=== PATIENT | male | born 1955 | race Caucasian/White ===

== ENCOUNTER 2016-12-14 12:58 | Inpatient (IN) | payer BC ==
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
--- NOTE | ~2016-12-14 | OP ---
Record Of Operation [facility] [address] [place]. [address] NAME: LESLEE MCINTYRE : 59 STATUS : ADM IN PAT#: [id number] AGE: 61 ADM/REG DATE : 12/14/16 MR#: [id number] REPORT SERV DATE: 12/15/16 DICTATED BY: BELA YUEN DATE: 12/15/16 REPORT STATUS : Draft TRANSCRIBED BY: MODL DATE: 12/15/16 DATE OF PROCEDURE: 12/15/2016 PREPROCEDURE DIAGNOSIS: Acute kidney failure. POSTPROCEDURE DIAGNOSIS: Acute kidney failure. PROCEDURE PERFORMED: Left IJ vein Vas-Cath with ultrasound guidance. ANESTHETIC: 1% local anesthetic. ESTIMATED BLOOD LOSS: Minimal. COMPLICATIONS: None. PROCEDURE IN DETAIL: Patient was in the ICU in supine position in his hospital bed. He was on multiple pressors. Admitted last night. 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 The patient's left neck was prepped and draped in a sterile fashion. A time-out was performed. Identified the correct patient, procedure, and site. We used the ultrasound to identify the left IJ vein. It was patent, compressible, and free of thrombus. We anesthetized the skin and accessed the vein under ultrasound guidance. Once we had access, wire was passed down into the cardiac chambers. The needle was removed. We widened the entry site with 11-blade scalpel. We used percutaneous dilators to dilate up the skin and vein tract. We then advanced the 20 cm PermCath over the wire into position. The dilator and wire were then removed. The catheter flushed and aspirated with ease, and caps were placed on the catheter. The catheter was affixed to the skin using interrupted silk suture. Sterile dressing was applied to the area. The patient tolerated the procedure well. He was left in critical condition in supine position in his hospital room. MIGUEL/STAN Bela Yuen MD / [id number] CC: MD Kevin Walter Frances
--- NOTE | ~2016-12-14 | OP ---
Record Of Operation [facility] [address] [place]. [address] NAME: LESLEE MCINTYRE : 59 STATUS : ADM IN PAT#: [id number] AGE: 61 ADM/REG DATE : 12/14/16 MR#: [id number] REPORT SERV DATE: 12/15/16 DICTATED BY: RUBIO GASTELUM DATE: 12/14/16 REPORT STATUS : Draft TRANSCRIBED BY: MODL DATE: 12/14/16 DATE OF PROCEDURE: 12/14/2016 PROCEDURE: Placement of emergent right femoral central line. REASON: Patient hypotensive and in shock and requires immediate central access for vasopressin administration. PROCEDURE: The right groin was prepped and draped in sterile fashion. Lidocaine 1% was used as a local anesthetic. The right femoral vein was localized using ultrasound guidance. During the first attempt of placing the central line, the guidewire kinked and the line needed to be removed with replacement of a second line which was 20 cm triple-lumen catheter placed over a guidewire which was then removed and sewn in place with 2-0 silk. Sterile dressing and Biopatch were applied. /STAN Rubio Gastelum M.D. / [id number] CC: Conrad Paris Jr, MD
--- NOTE | ~2016-12-14 | DS ---
Discharge Summary [address] [place] [place]. [address] NAME: LESLEE MCINTYRE : 59 STATUS : DIS IN PAT#: [id number] AGE: 61 ADM/REG DATE : 12/14/16 MR#: [id number] REPORT SERV DATE: 12/30/16 DICTATED BY: MARY LOTT DATE: 12/29/16 REPORT STATUS : Draft TRANSCRIBED BY: MODL DATE: 12/29/16 ADMISSION DATE: 12/14/2016 DISCHARGE DATE: 12/29/2016 CONSULTANTS: Dr. Jim Arredondo and Dr. Joe Lerma, Cardiology. Dr. Pennie Gastelum, Dr. Aida Urban, and Dr. Wilfredo Brar, Critical Care. Dr. Faizan Yuen, Vascular. Dr. Madhav Duran, Nephrology. Dr. Sarah, Cardiothoracic Surgery. DISCHARGE PROBLEM LIST: 1. Acute hypoxic respiratory failure requiring mechanical ventilation support. 2. Shock, suspected to be sepsis versus cardiogenic, but no organisms identified. 3. Acute kidney injury, oliguric, requiring CRRT transiently. 4. Atrial fibrillation, chronic, but with rapid ventricular response. 5. Biventricular systolic heart failure. 6. Shock liver, resolving. 7. Thrombocytopenia, associated with shock, now resolved. 8. Recent dysphagia. 9. Clostridium difficile colitis. HISTORY: This patient presented to the emergency room at [facility] with complaints of shortness of breath, orthopnea, and PND. He was seen initially by Cardiology and soon thereafter also by Pulmonary/Critical Care because he was diaphoretic and hypotensive. He had the respiratory failure, was on the ventilator. He had a right femoral venous line access attempted, first passed the guidewire, kinked, line had to be removed and replaced with a second catheter and later, he had a left femoral arterial line placed, then placement of right internal jugular central line as there was report of excess bleeding at the previous femoral central line due to traumatic insertion. The patient developed oliguric acute renal failure and was seen by Dr. Duran of Nephrology. The patient was felt to need CRRT, so Dr. Yuen placed a left IJ Vas-Cath catheter. This was used for CRRT. Fortunately, the patient improved, was able to be weaned off the ventilator, was able to be weaned off pressors and regain his renal function. He received not only pressors, but broad spectrum antibiotics and stress steroids. Blood cultures had no growth. Tracheal aspirate grew out normal ricardo. Stool on the was guaiac positive, but also was positive for C diff. The patient was started on vancomycin orally. The patient has had a tremendous improvement. His creatinine is back to normal at 1.09. He is afebrile. He is ambulating. His diarrhea is resolving. His thrombocytopenia which was initially thought to possibly be heparin-induced thrombocytopenia, but those tests came back negative and was therefore most likely associated just with the shock. His thrombocytopenia has resolved. His shock liver has dramatically improved, such that his alkaline phosphatase is 127, ALT 101, AST is 36 at this time. Discharge Summary [address] [address] NAME: LESLEE MCINTYRE : 59 STATUS : DIS IN PAT#: [id number] AGE: 61 ADM/REG DATE : 12/14/16 MR#: [id number] REPORT SERV DATE: 12/30/16 DICTATED BY: MARY LOTT DATE: 12/29/16 REPORT STATUS : Draft TRANSCRIBED BY: STAN DATE: 12/29/16 His echocardiogram on 12/15/2016 showed left atrial enlargement of 5.5 cm, left ventricular ejection fraction of 25% to 30%, moderate mitral regurgitation, large left pleural effusion. Around the , the patient was noted to have not only back pain, but shock and drop in his hemoglobin. CT abdomen and pelvis revealed large retroperitoneal hematoma in the psoas muscle. The patient was seen by Interventional Radiology and had coiling into the feeding artery with control of this bleeding site. Hemoglobin stabilized. It appears he has received 4 units of packed red cells throughout this hospitalization. His hemoglobin at discharge is 11.[address] Lerma does not want to start anticoagulation at this point in time with this recent bleed. He does not want him on any antiplatelet agents either. He will see him back in the office in two weeks to reassess. Dr. Lerma did consult Dr. Sarah to consider closure of the left atrial appendage. Cardiothoracic Surgery stated that they felt that based on his low ejection fraction and previous abnormal nuclear stress, they would want him to have further evaluation with a heart catheterization first. Dr. Lerma is aware of this concern and plans to discuss that with the patient, but wants to give him the next couple of weeks to gain strength first. DISCHARGE MEDICATIONS: Amiodarone 200 mg twice a day, metoprolol 12.5 mg b.i.d., vancomycin 125 mg liquid four times a day through 01/05/2017 to complete 14 days, Tylenol 650 q.6 hours p.r.n. pain or fever, multivitamin once a day. I spent 43 minutes with the patient today and with discharge plan. DICTATED BY: Baltazar Mendieta/STAN Mary Lott M.D. / [id number] CC: Baltazar Mendieta FRANCES Gordon Graham, M.D. James Zellner, M.D.
--- NOTE | ~2016-12-14 | IDS ---
Interim Discharge Summary [facility] [address] [place]. [address] NAME: LESLEE MCINTYRE : 59 STATUS : ADM IN [facility]#: [id number] AGE: 61 ADM/REG DATE : 12/14/16 MR#: [id number] REPORT SERV DATE: 12/23/16 DICTATED BY: YOSSI BRAR DATE: 12/23/16 REPORT STATUS : Draft TRANSCRIBED BY: MODL DATE: 12/23/16 ADMISSION DATE: 12/14/2016 DISCHARGE DATE: DATE OF TRANSFER TO THE ICU: 12/15/2016. DATE OF INTERIM SUMMARY: 12/23/2016. INTERIM DIAGNOSES: 1. Acute hypoxic respiratory failure. 2. Septic and cardiogenic shock. 3. Acute renal failure. 4. Thrombocytopenia. 5. Atrial fibrillation with a rapid ventricular response. 6. Shock liver. 7. Clostridium difficile colitis. 8. Acute systolic heart failure. 9. Dysphagia. ICU COURSE: Please see dictated H and P as well as last interim discharge summary dictated by Dr. Urban on 12/18/2016 for full patient presentation history and hospital course up until that point. I took over care of the patient on 12/19/2016, this interim summary covers the events of this week. When I took over the patient, he was still intubated on the ventilator with acute hypoxic respiratory failure and was still requiring continuous renal replacement therapy as well as being in shock. 1. Acute hypoxic respiratory failure. The patient was able to be weaned and liberated from the ventilator on 12/19/2016, since extubation he has done well from a Pulmonary standpoint. We will continue with pulmonary toilet and getting Physical Therapy to see him. 2. Shock. The patient was still on some low dose dobutamine when I took over at the beginning of the week due to his acute systolic heart failure. This was able to be weaned off within 24 hours as his urine output continued to improve. He has been off vasopressors the majority of the week. He briefly had to go on Levophed a couple nights ago, but I think that was more secondary to volume depletion than anything. He empirically was on antibiotics at that time for presumed septic shock. There are no clear etiology was ever identified. After a full course of antibiotics I discontinued those and he has done well off those for now. He did have some gallbladder thickening with potential sludge or stones seen on CT scan on admission. I did get General Surgery to evaluate him and they see no surgical indication at this time. 3. Acute renal failure. This has been managed by Renal. HEAD WAITER was discontinued several days ago and he has not require dialysis since that time. He is making very good urine output and will likely have his Vas-Cath discontinued very soon. 4. Thrombocytopenia. This is likely secondary to sepsis. He did have a HIT panel sent and was on a gastric band briefly at the beginning of the week though that was negative and he was then switched back over to a heparin drip. Platelets have slowly been increasing over the last couple of days, and he has had no evidence of bleeding. Interim Discharge Summary [place] [id number] [facility] [place]. [address] NAME: LESLEE MCINTYRE : 59 STATUS : ADM IN [facility]#: [id number] AGE: 61 ADM/REG DATE : 12/14/16 MR#: [id number] REPORT SERV DATE: 12/23/16 DICTATED BY: YOSSI BRAR DATE: 12/23/16 REPORT STATUS : Draft TRANSCRIBED BY: STAN DATE: 12/23/16 5. Atrial fibrillation as well as acute systolic heart failure. These things have been managed by Cardiology. He has been transitioned over to p.o. amiodarone as well as a p.o. beta bernard with good control of his heart rate. He is now on just p.o. Coumadin for anticoagulation. We will continue to defer management of these 2 issues to Cardiology. 6. Shock liver, this has resolved. 7. Clostridium difficile colitis. Several days ago the patient was having large volume bowel movements and had a Clostridium difficile toxin that was positive. He is now on p.o. vancomycin. 8. Dysphagia. Apparently the patient came in with complaints of difficulty swallowing. Speech evaluated him here in the unit after extubation and he was cleared for mechanical soft diet. He has done well with this with no evidence of aspiration. 9. The patient is stable and should be able to go out to a telemetry bed when one is available. Please call if you have any questions. The hospitalist service will resume his care once he goes out to the floor. BRIAN/STAN Yossi Brar MD / [id number] CC: Conrad Paris Jr, MD Frances H. Barnett, MD
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
--- NOTE | ~2016-12-14 | OP ---
Record Of Operation [facility] [address] [place]. [address] NAME: LESLEE MCINTYRE : 59 STATUS : ADM IN [facility]#: [id number] AGE: 61 ADM/REG DATE : 12/14/16 MR#: [id number] REPORT SERV DATE: 12/15/16 DICTATED BY: RUBIO GASTELUM DATE: 12/15/16 REPORT STATUS : Draft TRANSCRIBED BY: MODL DATE: 12/15/16 DATE OF PROCEDURE: 12/15/2016 PROCEDURE: Placement of right internal jugular central line. REASON: Excess bleeding at previous femoral central line site, traumatic insertion. This is an urgent situation since the patient is on pressors and needs central line access. DESCRIPTION OF PROCEDURE: The right neck was prepped and draped in sterile fashion. Lidocaine 1% was used as a local anesthetic. The right internal jugular vein was easily located using ultrasound guidance. Large bore needle was inserted directly into the right internal jugular using ultrasound guidance with good blood return. Guidewire was passed through the large bore needle, which was then removed. The site was dilated and 20 cm triple-lumen catheter was inserted over the guidewire, which was subsequently removed. Good blood return was obtained from all three ports. Sterile Biopatch was applied. Line was sewn in place with 2-0 silk and sterile dressing was applied. Chest x-ray confirmed good placement of the line without any pneumothorax. /STAN Rubio Gastelum M.D. / [id number] CC: Conrad Paris Jr, MD
--- NOTE | ~2016-12-14 | CN ---
Consultation Report [facility] [address] [place]. [address] NAME: HERNAN MCINTYRE : 59 STATUS : ADM IN PAT#: [id number] AGE: 61 ADM/REG DATE : 12/14/16 MR#: [id number] REPORT SERV DATE: 12/14/16 DICTATED BY: JIM ARREDONDO DATE: 12/14/16 REPORT STATUS : Draft TRANSCRIBED BY: MODL DATE: 12/14/16 CARDIOLOGY CONSULTATION. DATE OF CONSULTATION: 12/14/2016 OUTPATIENT WOODS RIDER: Dr. Joe Lerma. PURPOSE: Atrial fibrillation, RVR. HISTORY OF PRESENT ILLNESS: Mr. Hernan Mcintyre is a very pleasant 61-year-old man who is seen in the hospital room. There was a friend present. The patient has a history of chronic atrial fibrillation, but for an unclear reason, the patient stopped both his Eliquis and Coreg several months ago. When asked why, he simply says "he did." The patient presents to the hospital today with a slightly convoluted story, but apparently at some point, he was trying to swallow food, he was choking, and the food stuck in his throat. Apparently, this has happened several times is what the patient's friend says. He then came to the hospital with complaints of some shortness of breath. He was found to have a BNP of 1100. A chest x ray showed some mild volume overload and vertebral compression deformities, and he was found to have atrial fibrillation with RVR. He was admitted to the Hospitalist Service for further evaluation and management, and Cardiology is consulted. The patient reports he is fairly comfortable at the present time. He reports no obvious weight gain. If anything, thinks his weight could have gone down at some point. He does not follow his medical issues closely. No clear orthopnea, no angina. There possibly was a lightheaded spell today when the patient was coughing and gagging when the food stuck in his throat. PAST MEDICAL HISTORY: 1. Chronic atrial fibrillation, on a rate control, anticoagulation approach; however, the patient self discontinued both the rate control and anticoagulation approach several months ago as described above. 2. History of moderate to severe mitral regurgitation on previous echo. 3. History of a cardiomyopathy with an ejection fraction between 41% and 48%. 4. Previous perfusion imaging demonstrated mild inferior septal and inferior apical ischemia. This was 2014. HOME MEDICATIONS: Multivitamin. On review of office records, the patient was noted to be taking carvedilol 25 twice daily and Eliquis 5 twice daily. ALLERGIES: NONE KNOWN. SOCIAL HISTORY: Apparently a never smoker. FAMILY HISTORY: Reviewed and noncontributory. REVIEW OF SYSTEMS: Consultation Report [facility] [address] [place]. [address] NAME: HERNAN MCINTYRE : 59 STATUS : ADM IN PAT#: [id number] AGE: 61 ADM/REG DATE : 12/14/16 MR#: [id number] REPORT SERV DATE: 12/14/16 DICTATED BY: JIM ARREDONDO DATE: 12/14/16 REPORT STATUS : Draft TRANSCRIBED BY: STAN DATE: 12/14/16 As per the HPI. Otherwise, all other review of systems negative. PHYSICAL EXAMINATION: VITAL SIGNS: Blood pressure of 107/80, heart rate 103, respiratory rate 18, oxygen saturation 99% on room air. GENERAL: Appears stated age, no distress. EYES: Sclerae anicteric, no arcus senilis. MOUTH: Oral mucosa moist, lips acyanotic. NECK: Jugular venous pressure normal, no carotid bruits. LUNGS: Mildly diminished breath sounds. CARDIAC: Irregular rhythm, tachycardic, a 2/6 systolic murmur towards the apex. ABDOMEN: Soft, nondistended, nontender. EXTREMITIES: No edema. SKIN: Warm and dry. NEURO/PSYCH: Alert and oriented, nonfocal, mood appropriate. DATA: Creatinine 1.2. BNP 1120. Hemoglobin 12.9. Potassium 4.1. Chest x-ray is as described. ECG is atrial fibrillation with a right bundle-branch block conduction pattern and nonspecific ST-T changes. IMPRESSIONS: 1. Chronic atrial fibrillation, now with RVR secondary to medical noncompliance. 2. Dysphagia. 3. Possible volume overload secondary to atrial fibrillation with RVR. RECOMMENDATIONS: 1. Lasix. 2. Resume Coreg and up titrate as needed. 3. Plan to resume Eliquis, but we will hold for now pending possible GI evaluation for patient's dysphagia. 4. Echocardiogram is ordered and pending. We will follow. ESTUARDO/STAN Jim Arredondo M.D. / [id number] CC: Conrad Paris Jr, MD
--- NOTE | ~2016-12-14 | IDS ---
Interim Discharge Summary [facility] [address] [place]. [address] NAME: LESLEE MCINTYRE : 59 STATUS : ADM IN [facility]#: [id number] AGE: 61 ADM/REG DATE : 12/14/16 MR#: [id number] REPORT SERV DATE: 12/18/16 DICTATED BY: SYLWIA VALDEZ DATE: 12/18/16 REPORT STATUS : Draft TRANSCRIBED BY: MODL DATE: 12/18/16 ADMISSION DATE: 12/14/2016 DISCHARGE DATE: BRIEF HISTORY OF PRESENT ILLNESS: Mr. Mcintyre is a 61-year-old gentleman, who was admitted through the emergency room in shock with a perception of likely septic source with associated acute kidney injury, who was admitted to the intensive care unit after briefly being admitted to the Hospital Medicine Service under Dr. Paris. He has chronic atrial fibrillation and is followed at [facility] by Dr. Nicolas. His primary issue over the last couple of weeks is dysphagia with difficulty swallowing. He was actually scheduled to get an EGD on 12/19/2016 at [facility], but unfortunately became acutely ill and presented to our emergency room on the night of his admission. The concern initially was for aortic dissection based on the fact that his face was very blue and he underwent CTA, which was thankfully negative. Ultimately, he was moved to CCU and started on mechanical ventilation for respiratory support. A line was placed by Dr. Gastelum and he was started on broad- spectrum antibiotics with presumptive diagnosis of septic shock in the absence of any vascular pathology evident on the CT scan. Please see Dr. Gastelum's detailed documentation from his initial presentation for further details of his admission. HOSPITAL COURSE: After being moved to the CCU on 12/14/2016, I picked him up the following morning. Of note, he was oliguric and on multiple pressors. Decision was made to proceed with continuous dialysis for clearance of toxins and correction of acidosis. Dr. Duran and Dr. Yuen consulted to assist and he was started on the early in the afternoon on that day. His antibiotics were broadened to include meropenem in light of concern for ESBL organisms and he remained hypotensive on pressors for the next few days. He was also placed on stress dose steroids. He underwent an echo, which showed biventricular failure and pulmonary hypertension. Of note, his cultures have been fairly unremarkable and his procalcitonin and white count have resolved, but he does have some persistent hypotension, requiring intermittent dosing of Levophed. Concern has been raised for untreated/undrained source of sepsis and he underwent an MRI of his back in light of his complaints of intractable back pain on admission to exclude discitis or epidural abscess as he does have some wounds on his abdomen about which we have fairly minimal history, raising concern for transient bacteremia and seeding. The MRI was negative and we have now turned our attention to his heart as a potential source for persistent shock. He was seen by Cardiology, who initially started on heparin drip, however, he did develop thrombocytopenia and has been changed to argatroban due to concern for (HIT versus thrombocytopenia secondary to critical illness). ACUTE PROBLEM LIST: 1. Acute hypoxemic respiratory failure, on mechanical ventilation, 12/14 until today. Of note, he is still fairly volume overloaded and has right greater than left pleural effusions. We will consider thoracentesis in the next couple of days if the effusions do not respond to increased ultrafiltration on MOLD TOOLING TECHNICIAN, now that he is off vasopressors. Plan, spontaneous breathing trial daily, off sedation until successfully extubated. 2. Septic shock versus cardiogenic shock. His cultures have been unremarkable and we have now stop vancomycin. He continues on meropenem monotherapy and is now off Interim Discharge Summary [address] [address] NAME: LESLEE MCINTYRE : 59 STATUS : ADM IN [facility]#: [id number] AGE: 61 ADM/REG DATE : 12/14/16 MR#: [id number] REPORT SERV DATE: 12/18/16 DICTATED BY: SYLWIA VALDEZ DATE: 12/18/16 REPORT STATUS : Draft TRANSCRIBED BY: MODL DATE: 12/18/16 vasopressors. His procalcitonin level is fairly unremarkable and his white blood cell count has been around 7 for the last three days. We are concerned that his shock state may be secondary to his biventricular failure and he has been started on a trial of dobutamine by Dr. Michaud who is following him this weekend for [facility]. We will make further assessments. Pending his clinical response to trial of dobutamine. Of note, we also did discontinue propofol due to its negative inotropic properties, and we are now sedating him with only fentanyl and Precedex. 3. Acute kidney injury (oliguric), requiring CRRT secondary to the above. He continues to be on the which has been managed by Dr. Duran over the weekend. We certainly appreciate his assistance now that he is off vasopressors as of 5:30 this morning. The goal would be to begin to pull volume later today with ongoing clearance of toxins. 4. Atrial fibrillation with RVR. He is chronically in atrial fibrillation. He is actually on anticoagulation as well as some sort of antiarrhythmic, which were being prescribed by the Cardiology Clinic at [facility]. He did have episodes of RVR during his hospitalization due to his critical illness and is now better rate controlled with amiodarone. 5. Metabolic acidosis secondary to elevated lactate, now improved with CRRT and treatment of shock state. 6. Biventricular failure/pulmonary hypertension. He is certainly volume overloaded. We put him on a trial of dobutamine and stopped all potential negative inotropes and we will follow his clinical response to dobutamine in the next couple of days. 7. Shock liver. His LFTs did peak in the now trending down. 8. Thrombocytopenia. Again, likely secondary to his shock state but HIT panel has been sent to be complete. Heparin drip is off and he has been started on argatroban. 9. Recent history of dysphagia in the setting of recent weight loss. He would certainly benefit from GI evaluation and EGD in the future to exclude malignancy, however, this has been low in the priority list due to his more acute issues. 10.Prophylaxis. He is on argatroban at this point as well as a proton pump inhibitor. He is on tube feeds, which he is tolerating and is a full code. We have updated his family multiple times over the weekend and we will continue to do so. He will be picked up on Monday by the oncoming special technical operations officer. ZAHEER/STAN Sylwia Valdez MD / [id number] CC: Conrad Paris Jr, MD BARNETT, FRANCES
--- NOTE | ~2016-12-14 | OP ---
Record Of Operation [facility] [address] [place] [address] NAME: LESLEE MCINTYRE : 59 STATUS : ADM IN [facility]#: [id number] AGE: 61 ADM/REG DATE : 12/14/16 MR#: [id number] REPORT SERV DATE: 12/15/16 DICTATED BY: RUBIO GASTELUM DATE: 12/14/16 REPORT STATUS : Draft TRANSCRIBED BY: MODL DATE: 12/14/16 DATE OF PROCEDURE: 12/14/2016 PROCEDURE: Intubation. REASON: Respiratory failure, metabolic acidosis. DESCRIPTION OF PROCEDURE: The patient was pre-oxygenated with 100% oxygen and sedated with 20 mg of IV etomidate. A 3 mL of IV Diprivan and 65 mg of IV succinylcholine. He was monitored throughout the procedure and maintained at O2 saturation greater than 90%. A curved blade was used and vocal cords were well visualized and an #8 endotracheal tube was placed on the first attempt. Bilateral breath sounds were heard and CO2 sensor changed appropriate color from blue to yellow. Chest x-ray confirmed good placement of the endotracheal tube. /STAN Rubio Gastelum M.D. / [id number] CC: Conrad Paris Jr, MD
--- NOTE | ~2016-12-14 | CN ---
Consultation Report [facility] [address] [place]. [address] NAME: LESLEE MCINTYRE : 59 STATUS : ADM IN PAT#: [id number] AGE: 61 ADM/REG DATE : 12/14/16 MR#: [id number] REPORT SERV DATE: 12/15/16 DICTATED BY: RUBIO GASTELUM DATE: 12/14/16 REPORT STATUS : Draft TRANSCRIBED BY: MODL DATE: 12/14/16 CONSULTATION DATE OF CONSULTATION: 12/14/2016 HISTORY OF PRESENT ILLNESS: This is a 61-year-old patient I was asked to see by Dr. Purdy, hospitalist, after rapid response was called on the patient on the floor. The patient was admitted earlier in the day with a chief complaint of increasing shortness of breath. He apparently was trying to swallow food and choked and felt that the food got stuck in his throat. This apparently happened several times, and this is what brought him into the hospital. When he was evaluated in the emergency room, he was found to be in rapid atrial fibrillation. He has a known history of AFib, but stopped taking his medication including his Eliquis on his own a few months ago, the reason for this is not really apparent. He has been seen by Dr. Joe Lerma on an outpatient basis mostly because of his cardiomyopathy and has an ejection fraction of 41% to 48% and wonoflem-wr-tbltxg mitral regurgitation. Later in the evening, shortly after the patient had dinner, he started complaining of excruciating back pain, became diaphoretic, hypotensive, and a rapid response was called. The patient was evaluated on the floor and had a blood pressure of 60. He was then transferred to the CCU for further care and upon arrival here, was in excruciating pain, complaining mostly of back pain. No chest pain. Denied any abdominal pain. Did not have any nausea or vomiting associated with this. The patient was given some morphine and a milligram of Ativan. Central line was placed and eventually, the patient was intubated for respiratory distress and is currently undergoing further evaluation to determine the etiology of his pain and presentation. ALLERGIES: THE PATIENT HAS NO KNOWN DRUG ALLERGIES. MEDICATIONS: Currently, he is not on any medications at home. PAST MEDICAL HISTORY: 1. Significant for chronic atrial fibrillation. 2. Utdflyij-pp-wockve mitral regurgitation. 3. History of cardiomyopathy with ejection fraction of 41% to 48%. 4. Dysphagia. 5. History of inguinal hernia repair done by Dr. Barger in 2015. SOCIAL AND FAMILY HISTORY: All that is known is the patient is not a smoker and does not drink alcohol; however, there is no family available at this time to obtain any further medical history from. Family history cannot be obtained for the same reason. REVIEW OF SYSTEMS: The patient currently intubated and was not in any condition to give a review of systems. PHYSICAL EXAMINATION: Consultation Report [address] [place]. [address] NAME: LESLEE MCINTYRE : 59 STATUS : ADM IN [facility]#: [id number] AGE: 61 ADM/REG DATE : 12/14/16 MR#: [id number] REPORT SERV DATE: 12/15/16 DICTATED BY: RUBIO GASTELUM DATE: 12/14/16 REPORT STATUS : Draft TRANSCRIBED BY: STAN DATE: 12/14/16 GENERAL: Upon arrival to the Critical Care Unit, the patient was in excruciating pain, was not able to lie still in bed. VITAL SIGNS: Blood pressure varied systolic from 60 to 75. The patient was hypothermic to 93 degrees, heart rate was in the 40s and 50s, sinus bradycardic, respiratory rate was in the high 20s. SKIN: Cool to touch. HEENT: The head is atraumatic and normocephalic. Pupils are equal, round, and reactive to light and accommodation. Extraocular eye movements are intact. Sclerae anicteric. Conjunctivae are pink. Nasal mucosa is within normal limits. Oral mucosa is somewhat dry. Tongue was midline. NECK: Supple. No JVD or thyromegaly was noted. CHEST: Showed no wheezing, decreased breath sounds at the bases. CARDIAC: Revealed an irregularly irregular rhythm. No significant murmurs were heard. ABDOMEN: Nondistended and flat, and was not particularly firm to touch. Bowel sounds were absent. There were known what appeared to be old possible surgical scars on the skin; however, the patient states that he has not had recent surgery. : He has normal male external genitalia. Heredia has been placed with very little urine output. EXTREMITIES: There is otherwise no skin breakdown. Pulses are diminished, but palpable after initiation of Levophed. There is no cyanosis, clubbing, or edema. NEUROLOGIC: Grossly intact. LABORATORY DATA: Most current lab work shows the procalcitonin pending. Sodium is 140, potassium 5.3, chloride 100, bicarbonate 24, BUN 19, creatinine 1.93, glucose 296, magnesium 1.9, phosphorus 5.3, albumin 2.6. Amylase, lipase, and LFTs are normal. Troponin 0.03. Lactic acid level 11, cortisol level is 41, ammonia level is within normal limits. White cell count is 4.9, hemoglobin 12, hematocrit 35, platelet count 143,000. INR is 1.5. Remainder of lab work is pending. EKG shows a junctional rhythm, heart rate of 42, and right bundle-branch block. Chest x-ray shows good placement of the endotracheal tube, enlarged cardiac silhouette. KUB shows good placement of the NG tube. ASSESSMENT AND PLAN: This is a 61-year-old patient, who presents with increasing shortness of breath, known history of atrial fibrillation with rapid ventricular response, cardiomyopathy, mitral regurgitation, and difficulty with dysphagia, who now developed sudden onset of excruciating back pain, shortness of breath, hypotension, and what appears to be shock. Possibilities include dissection, pulmonary embolus, perforated esophagus. The plan will be to stabilize the patient and obtain a CT of the chest, abdomen, and pelvis. Contrast will be included to get the best possible result since the patient is in a life- threatening situation. His creatinine is now elevated from normal to 1.93. IV fluids will be given and creatinine will be closely watched, but I suspect the patient will develop JANY just on the basis of being extremely hypotensive. The patient is in critical condition and is at risk for circulatory, renal, and cardiac decompensation. Since he is intubated, he will require frequent ventilator manipulation, volume resuscitation, vasoactive manipulation, and neurologic monitoring. Consultation Report [address] [place]. [address] NAME: LESLEE MCINTYRE : 59 STATUS : ADM IN [facility]#: [id number] AGE: 61 ADM/REG DATE : 12/14/16 MR#: [id number] REPORT SERV DATE: 12/15/16 DICTATED BY: RUBIO GASTELUM DATE: 12/14/16 REPORT STATUS : Draft TRANSCRIBED BY: STAN DATE: 12/14/16 Total time spent with the patient was 120 minutes, which began at 9:30 p.m. and ended at 11:30 p.m. for 120 minutes, less 30 minutes for intubation and line placement, leaving critical care time at 90 minutes. AUGUST/STAN Rubio Gastelum M.D. / [id number] CC: Conrad Paris Jr, MD
--- NOTE | ~2016-12-14 | OP ---
Record Of Operation [facility] [address] [place]. [address] NAME: LESLEE MCINTYRE : 59 STATUS : ADM IN PAT#: [id number] AGE: 61 ADM/REG DATE : 12/14/16 MR#: [id number] REPORT SERV DATE: 12/15/16 DICTATED BY: RUBIO PEREZ DATE: 12/15/16 REPORT STATUS : Draft TRANSCRIBED BY: MODL DATE: 12/15/16 DATE OF PROCEDURE: 12/15/2016 PROCEDURE: Placement of left femoral arterial line. REASON: The patient is hypotensive, etiology unknown, and is on 2 pressors, and needs invasive monitoring. PROCEDURE: The left groin was prepped and draped in sterile fashion. Lidocaine 1% was used as local anesthetic. The femoral artery was easily located using ultrasound guidance. Large bore needle was inserted into the right femoral artery with good blood return. Guidewire was threaded through the large bore needle, which was then removed. A 12 cm catheter was then inserted over the guidewire with removal of the guidewire. Sterile Biopatch was applied. The line was sewn in place with 2-0 silk. Good waveform was transduced. Sterile dressing was applied. /STAN Rubio Perez M.D. / [id number]
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
[2016-12-14 12:41] LABS: BASOPHILS 0.5 %; BASOPHILS ABSOLUTE 0.03 10/3/uL (0.0-0.16); EOSINOPHILS 2.1 %; EOSINOPHILS ABSOLUTE 0.12 10/3/uL (0.0-0.53); HEMATOCRIT 37.7 % (40.0-51.0); HEMOGLOBIN 12.9 g/dL (13.6-17.8); IMMATURE GRANULOCYTES 0.3 %; IMMATURE GRANULOCYTES ABSOLUTE 0.02 10/3/uL (0.0-0.11); LYMPHOCYTES ABSOLUTE 1.21 10/3/uL (0.67-4.30); MANUAL DIFF NO %; MEAN CORPUS HGB CONC 34.2 g/dL (32.0-36.0); MEAN CORPUSCULAR HEMOGLOB 28.6 pg (26.0-34.0); MEAN CORPUSCULAR VOLUME 83.6 fL (80-100); MEAN PLATELET VOLUME 11.1 fL (9.2-13.0); MONOCYTES 8.5 %; MONOCYTES ABSOLUTE 0.49 10/3/uL (0.21-1.20); NEUTROPHILS 67.6 %; NEUTROPHILS ABSOLUTE 3.89 10/3/uL (2.02-8.40); PLATELET COUNT 137 10/3/uL (150-400); RBC DISTRIBUTION WIDTH 17.1 % (12.0-16.0); RED CELL COUNT 4.51 10/6/uL (4.7-6.1); WHITE BLOOD CELLS 5.8 10/3/uL (4.5-10.5)
[2016-12-14 12:48] LABS: INTERNATIONAL NORMAL RATI 1.2 UNITS (-); PARTIAL THROMBO TIME 28.3 SEC (22.5-37.2); PROTIME (NOT ORD) 14.8 SEC (12.0-14.5)
[~2016-12-14 12:58] MED LIST: COREG12 PO; ELIQUIS 5 MG TAB5 MG PO; GOODY'S HEADAC1 EACH PO; UNKNOWN MED
[2016-12-14 13:01] LABS: BUN (BLOOD UREA NITROGEN) 17 MG/DL (6-23); CALCIUM, SERUM 8.5 MG/DL (8.5-10.4); CHEST PAIN PROFILE TAT 0 Hrs 24 Mins; CHLORIDE, SERUM 107 MMOL/L (96-112); CO2 (CARBON DIOXIDE) 21 MMOL/L (24-34); CREATININE 1.24 MG/DL (0.70-1.30); GFR AFRICAN AMERICAN 73 ML/MIN (>=60); GFR NON AFRICAN AMERICAN 63 ML/MIN (>=60); GLUCOSE, SERUM 101 MG/DL (60-99); POTASSIUM, SERUM 4.1 MMOL/L (3.5-5.3); SODIUM, SERUM 137 MMOL/L (135-148); TROPONIN I 0.04 NG/ML (<0.05)
[2016-12-14 13:32] LABS: ALLENS TEST Pos; BE (BASE EXCESS) -6.2 MEQ/L (0 +/- 2.5); CARBOXYHEMOGLOBIN 1.2 % (0-3); HCO3 (ACTUAL BICARBONATE) 16.1 MEQ/L (23-27); HEMOBLOGIN CONTENT 13.2 G/DL (14-18); INSTRUMENT SERIAL # 8087; METHEMOGLOBIN 0.2 % (0-3); O2 CONTENT 17.8 VOL% (18-24); PCO2 (CO2 TENSION) 24 MMHG (35-45); PO2 (O2 TENSION) 93 MMHG (79-93); SAMPLE Arterial; pH 7.44 (7.37-7.43)
[2016-12-14] MEDS ORDERED: CENTRUM PO (14:29)
[2016-12-14] MEDS ORDERED: *DENIES (14:34)
[2016-12-14 19:04] LABS: ULTRASENSITIVE TSH 2.42 MCIU/ML (0.358-3.740)
[2016-12-14 21:41] LABS: ALBUMIN 3.6 G/DL (3.5-5.0)
[2016-12-14 22:34] LABS: BASOPHILS 0.2 %; BASOPHILS ABSOLUTE 0.01 10/3/uL (0.0-0.16); EOSINOPHILS 0.2 %; EOSINOPHILS ABSOLUTE 0.01 10/3/uL (0.0-0.53); HEMATOCRIT 35.6 % (40.0-51.0); HEMOGLOBIN 12.1 g/dL (13.6-17.8); IMMATURE GRANULOCYTES 0.4 %; IMMATURE GRANULOCYTES ABSOLUTE 0.02 10/3/uL (0.0-0.11); LYMPHOCYTES 17.7 %; LYMPHOCYTES ABSOLUTE 0.87 10/3/uL (0.67-4.30); MEAN CORPUSCULAR HEMOGLOB 28.5 pg (26.0-34.0); MEAN PLATELET VOLUME 11.7 fL (9.2-13.0); MONOCYTES 4.5 %; MONOCYTES ABSOLUTE 0.22 10/3/uL (0.21-1.20); NEUTROPHILS ABSOLUTE 3.78 10/3/uL (2.02-8.40); PLATELET COUNT 143 10/3/uL (150-400); RBC DISTRIBUTION WIDTH 17.4 % (12.0-16.0); RED CELL COUNT 4.24 10/6/uL (4.7-6.1); WHITE BLOOD CELLS 4.9 10/3/uL (4.5-10.5)
[2016-12-14 22:45] LABS: MANUAL DIFF NO %
[2016-12-14 22:48] LABS: INTERNATIONAL NORMAL RATI 1.5 UNITS (-); PARTIAL THROMBO TIME 28.6 SEC (22.5-37.2)
[2016-12-14 22:50] LABS: PROTIME (NOT ORD) 17.5 SEC (12.0-14.5)
[2016-12-14 22:54] LABS: ALKALINE PHOSPHATASE 99 U/L (45-117); BUN (BLOOD UREA NITROGEN) 19 MG/DL (6-23); CHLORIDE, SERUM 100 MMOL/L (96-112); CO2 (CARBON DIOXIDE) 24 MMOL/L (24-34); DIRECT BILIRUBIN 0.2 MG/DL (0.0-0.4); GLOBULIN 2.6 G/DL (2.5-4.1); INDIRECT BILIRUBIN(NOT ORDER) 0.8 MG/DL (0.1-0.9); PHOSPHORUS, SERUM 5.3 MG/DL (2.5-4.5); SGOT(AST) 30 U/L (5-40); SGPT(ALT) 37 U/L (5-65); SODIUM, SERUM 140 MMOL/L (135-148); TOTAL PROTEIN 5.2 G/DL (6.0-8.5)
[2016-12-14 22:55] LABS: ALBUMIN 2.6 G/DL (3.5-5.0); CALCIUM, SERUM 7.3 MG/DL (8.5-10.4); CREATININE 1.93 MG/DL (0.70-1.30); GFR AFRICAN AMERICAN 43 ML/MIN (>=60); GFR NON AFRICAN AMERICAN 37 ML/MIN (>=60); GLUCOSE, SERUM 296 MG/DL (60-99); POTASSIUM, SERUM 5.3 MMOL/L (3.5-5.3)
[2016-12-14 23:11] LABS: CPK 61 U/L (0-200); TROPONIN I 0.03 NG/ML (<0.05)
[2016-12-14 23:13] LABS: CK-MB 3.2 NG/ML
[2016-12-14 23:47] LABS: PROCALCITONIN 0.05 ng/mL (<0.5)
[2016-12-15 04:06] LABS: INSTRUMENT SERIAL # 35151
[2016-12-15 04:07] LABS: BE (BASE EXCESS) -12.8 MEQ/L (0 +/- 2.5); HCO3 (ACTUAL BICARBONATE) 11.2 MEQ/L (23-27); HEMOBLOGIN CONTENT 14.8 G/DL (14-18); METHEMOGLOBIN 0.7 % (0-3); MODE CMV; O2 CONTENT 19.5 VOL% (18-24); OPERATOR ID 23712; PCO2 (CO2 TENSION) 23 MMHG (35-45); PO2 (O2 TENSION) 83 MMHG (79-93); SAMPLE Arterial; TIDAL VOLUME 500 ML; pH 7.31 (7.37-7.43)
[2016-12-15 04:50] LABS: A/G RATIO 1.1 (0.7-1.9); ALBUMIN 3.1 G/DL (3.5-5.0); ALKALINE PHOSPHATASE 111 U/L (45-117); BUN (BLOOD UREA NITROGEN) 24 MG/DL (6-23); CALCIUM, SERUM 6.7 MG/DL (8.5-10.4); CHLORIDE, SERUM 104 MMOL/L (96-112); CO2 (CARBON DIOXIDE) 11 MMOL/L (24-34); CREATININE 2.17 MG/DL (0.70-1.30); GFR AFRICAN AMERICAN 37 ML/MIN (>=60); GFR NON AFRICAN AMERICAN 32 ML/MIN (>=60); GLOBULIN 2.8 G/DL (2.5-4.1); GLUCOSE, SERUM 258 MG/DL (60-99); INDIRECT BILIRUBIN(NOT ORDER) 1.3 MG/DL (0.1-0.9); PHOSPHORUS, SERUM 5.2 MG/DL (2.5-4.5); POTASSIUM, SERUM 5.5 MMOL/L (3.5-5.3); SGOT(AST) 107 U/L (5-40); SGPT(ALT) 54 U/L (5-65); SODIUM, SERUM 138 MMOL/L (135-148); TOTAL BILIRUBIN 2.3 MG/DL (0-1.2); TOTAL PROTEIN 5.9 G/DL (6.0-8.5)
[2016-12-15 05:41] LABS: HEMATOCRIT 41.8 % (40.0-51.0); MANUAL DIFF YES %; MEAN CORPUS HGB CONC 33.5 g/dL (32.0-36.0); MEAN CORPUSCULAR HEMOGLOB 28.7 pg (26.0-34.0); MEAN CORPUSCULAR VOLUME 85.8 fL (80-100); MEAN PLATELET VOLUME 12.3 fL (9.2-13.0); PLATELET COUNT 150 10/3/uL (150-400); RBC DISTRIBUTION WIDTH 17.7 % (12.0-16.0); RED CELL COUNT 4.87 10/6/uL (4.7-6.1); WHITE BLOOD CELLS 17.4 10/3/uL (4.5-10.5)
[2016-12-15 06:30] LABS: ANISOCYTOSIS 1+ (5-10/OIF) (0-5/OIF); BAND NEUTROPHILS 4 %; LYMPHOCYTES 10 %; LYMPHOCYTES ABSOLUTE (CALC) 1.74 10/3/uL (0.67-4.30); MONOCYTES 2 %; MONOCYTES ABSOLUTE (CALC) 0.35 10/3/uL (0.21-1.20); NEUTROPHILS ABSOLUTE (CALC) 15.31 10/3/uL (2.02-8.40); PLATELET ESTIMATE ADQ (ADEQUATE); SEGMENTED NEUTROPHIL (0) 84 %; TOTAL NUCLEATED CELLS 100
[2016-12-15 07:39] LABS: CK-MB 3.3 NG/ML; CPK 88 U/L (0-200)
[2016-12-15 07:40] LABS: TROPONIN I 0.06 NG/ML (<0.05)
[2016-12-15 10:10] LABS: BASOPHILS 0.1 %; BASOPHILS ABSOLUTE 0.01 10/3/uL (0.0-0.16); EOSINOPHILS 0 %; HEMATOCRIT 37.8 % (40.0-51.0); HEMOGLOBIN 12.8 g/dL (13.6-17.8); IMMATURE GRANULOCYTES 0.4 %; IMMATURE GRANULOCYTES ABSOLUTE 0.06 10/3/uL (0.0-0.11); LYMPHOCYTES 7.6 %; LYMPHOCYTES ABSOLUTE 1.14 10/3/uL (0.67-4.30); MEAN CORPUS HGB CONC 33.9 g/dL (32.0-36.0); MEAN CORPUSCULAR HEMOGLOB 28.5 pg (26.0-34.0); MEAN CORPUSCULAR VOLUME 84.2 fL (80-100); MEAN PLATELET VOLUME 11.6 fL (9.2-13.0); MONOCYTES 3.5 %; MONOCYTES ABSOLUTE 0.53 10/3/uL (0.21-1.20); NEUTROPHILS 88.4 %; PLATELET COUNT 148 10/3/uL (150-400); RBC DISTRIBUTION WIDTH 17.9 % (12.0-16.0); RED CELL COUNT 4.49 10/6/uL (4.7-6.1)
[2016-12-15 10:11] LABS: MANUAL DIFF NO %
[2016-12-15 10:17] LABS: PARTIAL THROMBO TIME 31.3 SEC (22.5-37.2); PROTIME (NOT ORD) 22.1 SEC (12.0-14.5)
[2016-12-15 10:26] LABS: A/G RATIO 1.2 (0.7-1.9); ALBUMIN 2.9 G/DL (3.5-5.0); ALKALINE PHOSPHATASE 103 U/L (45-117); CHLORIDE, SERUM 106 MMOL/L (96-112); GFR AFRICAN AMERICAN 37 ML/MIN (>=60); GFR NON AFRICAN AMERICAN 32 ML/MIN (>=60); GLOBULIN 2.5 G/DL (2.5-4.1); GLUCOSE, SERUM 253 MG/DL (60-99); SGOT(AST) 761 U/L (5-40); SGPT(ALT) 505 U/L (5-65); SODIUM, SERUM 139 MMOL/L (135-148); TOTAL PROTEIN 5.4 G/DL (6.0-8.5)
[2016-12-15 10:27] LABS: BUN (BLOOD UREA NITROGEN) 29 MG/DL (6-23); CALCIUM, SERUM 6.4 MG/DL (8.5-10.4); CO2 (CARBON DIOXIDE) 18 MMOL/L (24-34); PHOSPHORUS, SERUM 2.7 MG/DL (2.5-4.5); POTASSIUM, SERUM 3.9 MMOL/L (3.5-5.3); TOTAL BILIRUBIN 1.5 MG/DL (0-1.2); TROPONIN I 0.09 NG/ML (<0.05)
[2016-12-15 10:33] LABS: ALLENS TEST Pos; BE (BASE EXCESS) -5.9 MEQ/L (0 +/- 2.5); CARBOXYHEMOGLOBIN 0.3 % (0-3); HCO3 (ACTUAL BICARBONATE) 16.7 MEQ/L (23-27); HEMOBLOGIN CONTENT 14.3 G/DL (14-18); INSTRUMENT SERIAL # 35151; METHEMOGLOBIN 0.8 % (0-3); MODE CMV; O2 CONTENT 19.2 VOL% (18-24); PCO2 (CO2 TENSION) 26 MMHG (35-45); PO2 (O2 TENSION) 90 MMHG (79-93); SAMPLE Arterial; TIDAL VOLUME 430 ML; pH 7.43 (7.37-7.43)
[2016-12-15 12:29] LABS: TROPONIN I 0.1 NG/ML (<0.05)
[2016-12-15 21:34] LABS: BASOPHILS 0 %; EOSINOPHILS 0 %; HEMATOCRIT 35.6 % (40.0-51.0); HEMOGLOBIN 12.3 g/dL (13.6-17.8); IMMATURE GRANULOCYTES 0.3 %; IMMATURE GRANULOCYTES ABSOLUTE 0.04 10/3/uL (0.0-0.11); LYMPHOCYTES 7.1 %; LYMPHOCYTES ABSOLUTE 0.85 10/3/uL (0.67-4.30); MEAN CORPUS HGB CONC 34.6 g/dL (32.0-36.0); MEAN CORPUSCULAR HEMOGLOB 28.7 pg (26.0-34.0); MEAN CORPUSCULAR VOLUME 83.2 fL (80-100); MEAN PLATELET VOLUME 10.3 fL (9.2-13.0); MONOCYTES 2.2 %; MONOCYTES ABSOLUTE 0.26 10/3/uL (0.21-1.20); NEUTROPHILS 90.4 %; NEUTROPHILS ABSOLUTE 10.88 10/3/uL (2.02-8.40); RBC DISTRIBUTION WIDTH 17.8 % (12.0-16.0); RED CELL COUNT 4.28 10/6/uL (4.7-6.1)
[2016-12-15 21:37] LABS: MANUAL DIFF NO %; PLATELET COUNT 100 10/3/uL (150-400)
[2016-12-15 21:47] LABS: BUN (BLOOD UREA NITROGEN) 24 MG/DL (6-23); CALCIUM, SERUM 7.4 MG/DL (8.5-10.4); CHLORIDE, SERUM 104 MMOL/L (96-112); CO2 (CARBON DIOXIDE) 24 MMOL/L (24-34); GFR AFRICAN AMERICAN 76 ML/MIN (>=60); GFR NON AFRICAN AMERICAN 66 ML/MIN (>=60); GLUCOSE, SERUM 163 MG/DL (60-99); POTASSIUM, SERUM 3.4 MMOL/L (3.5-5.3); SODIUM, SERUM 139 MMOL/L (135-148)
[2016-12-16 02:37] LABS: BASOPHILS 0 %; EOSINOPHILS 0 %; HEMATOCRIT 35.2 % (40.0-51.0); HEMOGLOBIN 12.1 g/dL (13.6-17.8); IMMATURE GRANULOCYTES 0.4 %; IMMATURE GRANULOCYTES ABSOLUTE 0.05 10/3/uL (0.0-0.11); LYMPHOCYTES 4.9 %; LYMPHOCYTES ABSOLUTE 0.63 10/3/uL (0.67-4.30); MEAN CORPUS HGB CONC 34.4 g/dL (32.0-36.0); MEAN CORPUSCULAR HEMOGLOB 28.8 pg (26.0-34.0); MEAN CORPUSCULAR VOLUME 83.8 fL (80-100); MEAN PLATELET VOLUME 10.4 fL (9.2-13.0); MONOCYTES 1.7 %; MONOCYTES ABSOLUTE 0.22 10/3/uL (0.21-1.20); NEUTROPHILS ABSOLUTE 11.83 10/3/uL (2.02-8.40); PLATELET COUNT 87 10/3/uL (150-400); RBC DISTRIBUTION WIDTH 17.7 % (12.0-16.0); WHITE BLOOD CELLS 12.7 10/3/uL (4.5-10.5)
[2016-12-16 02:46] LABS: MANUAL DIFF NO %
[2016-12-16 03:00] LABS: CALCIUM, SERUM 7.7 MG/DL (8.5-10.4); CHLORIDE, SERUM 105 MMOL/L (96-112); CO2 (CARBON DIOXIDE) 25 MMOL/L (24-34); CREATININE 0.95 MG/DL (0.70-1.30); GFR AFRICAN AMERICAN 101 ML/MIN (>=60); GFR NON AFRICAN AMERICAN 87 ML/MIN (>=60); PHOSPHORUS, SERUM 2.2 MG/DL (2.5-4.5); POTASSIUM, SERUM 3.7 MMOL/L (3.5-5.3); SODIUM, SERUM 141 MMOL/L (135-148)
[2016-12-16 03:01] LABS: BUN (BLOOD UREA NITROGEN) 20 MG/DL (6-23); GLUCOSE, SERUM 124 MG/DL (60-99)
[2016-12-16 04:09] LABS: BE (BASE EXCESS) -2.4 MEQ/L (0 +/- 2.5); CARBOXYHEMOGLOBIN 0.3 % (0-3); HCO3 (ACTUAL BICARBONATE) 20.8 MEQ/L (23-27); INSTRUMENT SERIAL # 35151; PCO2 (CO2 TENSION) 31 MMHG (35-45); PO2 (O2 TENSION) 223 MMHG (79-93); pH 7.44 (7.37-7.43)
[2016-12-16 04:10] LABS: HEMOBLOGIN CONTENT 13.1 G/DL (14-18); METHEMOGLOBIN 0.4 % (0-3); MODE CMV; O2 CONTENT 18.6 VOL% (18-24); OPERATOR ID 23712; SAMPLE Arterial; TIDAL VOLUME 430 ML
[2016-12-16 09:08] LABS: BASOPHILS 0 %; EOSINOPHILS 0.1 %; EOSINOPHILS ABSOLUTE 0.01 10/3/uL (0.0-0.53); HEMATOCRIT 34.1 % (40.0-51.0); HEMOGLOBIN 11.7 g/dL (13.6-17.8); IMMATURE GRANULOCYTES 0.3 %; IMMATURE GRANULOCYTES ABSOLUTE 0.03 10/3/uL (0.0-0.11); LYMPHOCYTES 6.3 %; LYMPHOCYTES ABSOLUTE 0.75 10/3/uL (0.67-4.30); MEAN CORPUS HGB CONC 34.3 g/dL (32.0-36.0); MEAN CORPUSCULAR HEMOGLOB 28.7 pg (26.0-34.0); MEAN CORPUSCULAR VOLUME 83.6 fL (80-100); MEAN PLATELET VOLUME 10.3 fL (9.2-13.0); MONOCYTES 1.9 %; MONOCYTES ABSOLUTE 0.23 10/3/uL (0.21-1.20); NEUTROPHILS 91.4 %; NEUTROPHILS ABSOLUTE 10.85 10/3/uL (2.02-8.40); PLATELET COUNT 76 10/3/uL (150-400); RBC DISTRIBUTION WIDTH 18.1 % (12.0-16.0); RED CELL COUNT 4.08 10/6/uL (4.7-6.1); WHITE BLOOD CELLS 11.9 10/3/uL (4.5-10.5)
[2016-12-16 09:11] LABS: MANUAL DIFF NO %
[2016-12-16 09:21] LABS: BUN (BLOOD UREA NITROGEN) 17 MG/DL (6-23); CALCIUM, SERUM 8.1 MG/DL (8.5-10.4); CHLORIDE, SERUM 105 MMOL/L (96-112); CO2 (CARBON DIOXIDE) 28 MMOL/L (24-34); CREATININE 0.76 MG/DL (0.70-1.30); GFR AFRICAN AMERICAN 116 ML/MIN (>=60); GFR NON AFRICAN AMERICAN 100 ML/MIN (>=60); GLUCOSE, SERUM 126 MG/DL (60-99); POTASSIUM, SERUM 3.6 MMOL/L (3.5-5.3); SODIUM, SERUM 139 MMOL/L (135-148)
[2016-12-16 15:48] LABS: BASOPHILS 0.1 %; BASOPHILS ABSOLUTE 0.01 10/3/uL (0.0-0.16); EOSINOPHILS 0.2 %; EOSINOPHILS ABSOLUTE 0.02 10/3/uL (0.0-0.53); HEMATOCRIT 34.8 % (40.0-51.0); HEMOGLOBIN 12.2 g/dL (13.6-17.8); IMMATURE GRANULOCYTES 0.2 %; IMMATURE GRANULOCYTES ABSOLUTE 0.03 10/3/uL (0.0-0.11); LYMPHOCYTES 7.5 %; LYMPHOCYTES ABSOLUTE 0.91 10/3/uL (0.67-4.30); MEAN CORPUS HGB CONC 35.1 g/dL (32.0-36.0); MEAN CORPUSCULAR HEMOGLOB 29.4 pg (26.0-34.0); MEAN CORPUSCULAR VOLUME 83.9 fL (80-100); MEAN PLATELET VOLUME 10.9 fL (9.2-13.0); MONOCYTES 2.3 %; MONOCYTES ABSOLUTE 0.28 10/3/uL (0.21-1.20); NEUTROPHILS 89.7 %; NEUTROPHILS ABSOLUTE 10.86 10/3/uL (2.02-8.40); PLATELET COUNT 84 10/3/uL (150-400); RBC DISTRIBUTION WIDTH 18.3 % (12.0-16.0); RED CELL COUNT 4.15 10/6/uL (4.7-6.1); WHITE BLOOD CELLS 12.1 10/3/uL (4.5-10.5)
[2016-12-16 15:51] LABS: MANUAL DIFF NO %
[2016-12-16 16:06] LABS: BUN (BLOOD UREA NITROGEN) 16 MG/DL (6-23); CHLORIDE, SERUM 104 MMOL/L (96-112); CO2 (CARBON DIOXIDE) 26 MMOL/L (24-34); CREATININE 0.76 MG/DL (0.70-1.30); GFR AFRICAN AMERICAN 116 ML/MIN (>=60); GFR NON AFRICAN AMERICAN 100 ML/MIN (>=60); GLUCOSE, SERUM 142 MG/DL (60-99); PHOSPHORUS, SERUM 1.5 MG/DL (2.5-4.5); POTASSIUM, SERUM 3.9 MMOL/L (3.5-5.3); SODIUM, SERUM 140 MMOL/L (135-148)
[2016-12-16 20:22] LABS: BASOPHILS 0.1 %; BASOPHILS ABSOLUTE 0.01 10/3/uL (0.0-0.16); EOSINOPHILS 0.3 %; EOSINOPHILS ABSOLUTE 0.03 10/3/uL (0.0-0.53); HEMATOCRIT 34.6 % (40.0-51.0); HEMOGLOBIN 11.9 g/dL (13.6-17.8); IMMATURE GRANULOCYTES 0.3 %; IMMATURE GRANULOCYTES ABSOLUTE 0.04 10/3/uL (0.0-0.11); LYMPHOCYTES 7.5 %; LYMPHOCYTES ABSOLUTE 0.88 10/3/uL (0.67-4.30); MANUAL DIFF NO %; MEAN CORPUS HGB CONC 34.4 g/dL (32.0-36.0); MEAN CORPUSCULAR VOLUME 84.4 fL (80-100); MEAN PLATELET VOLUME 10.8 fL (9.2-13.0); MONOCYTES 3.4 %; NEUTROPHILS 88.4 %; NEUTROPHILS ABSOLUTE 10.42 10/3/uL (2.02-8.40); PLATELET COUNT 82 10/3/uL (150-400); RBC DISTRIBUTION WIDTH 18.2 % (12.0-16.0); WHITE BLOOD CELLS 11.8 10/3/uL (4.5-10.5)
[2016-12-16 20:41] LABS: BUN (BLOOD UREA NITROGEN) 14 MG/DL (6-23); CALCIUM, SERUM 7.7 MG/DL (8.5-10.4); CHLORIDE, SERUM 103 MMOL/L (96-112); CO2 (CARBON DIOXIDE) 24 MMOL/L (24-34); CREATININE 0.69 MG/DL (0.70-1.30); GFR AFRICAN AMERICAN 120 ML/MIN (>=60); GFR NON AFRICAN AMERICAN 104 ML/MIN (>=60); GLUCOSE, SERUM 136 MG/DL (60-99); POTASSIUM, SERUM 3.8 MMOL/L (3.5-5.3); SODIUM, SERUM 139 MMOL/L (135-148)
[2016-12-17 02:23] LABS: BASOPHILS 0 %; EOSINOPHILS 0.3 %; EOSINOPHILS ABSOLUTE 0.03 10/3/uL (0.0-0.53); HEMATOCRIT 34.3 % (40.0-51.0); HEMOGLOBIN 11.4 g/dL (13.6-17.8); IMMATURE GRANULOCYTES 0.3 %; IMMATURE GRANULOCYTES ABSOLUTE 0.03 10/3/uL (0.0-0.11); LYMPHOCYTES 8.7 %; LYMPHOCYTES ABSOLUTE 0.83 10/3/uL (0.67-4.30); MEAN CORPUS HGB CONC 33.2 g/dL (32.0-36.0); MEAN CORPUSCULAR HEMOGLOB 28.3 pg (26.0-34.0); MEAN CORPUSCULAR VOLUME 85.1 fL (80-100); MEAN PLATELET VOLUME 11.4 fL (9.2-13.0); MONOCYTES 3.2 %; MONOCYTES ABSOLUTE 0.31 10/3/uL (0.21-1.20); NEUTROPHILS 87.5 %; NEUTROPHILS ABSOLUTE 8.36 10/3/uL (2.02-8.40); PLATELET COUNT 73 10/3/uL (150-400); RBC DISTRIBUTION WIDTH 18.2 % (12.0-16.0); RED CELL COUNT 4.03 10/6/uL (4.7-6.1); WHITE BLOOD CELLS 9.6 10/3/uL (4.5-10.5)
[2016-12-17 02:29] LABS: MANUAL DIFF NO %
[2016-12-17 02:47] LABS: A/G RATIO 1.4 (0.7-1.9); ALKALINE PHOSPHATASE 106 U/L (45-117); BUN (BLOOD UREA NITROGEN) 13 MG/DL (6-23); CALCIUM, SERUM 7.8 MG/DL (8.5-10.4); CHLORIDE, SERUM 103 MMOL/L (96-112); CO2 (CARBON DIOXIDE) 26 MMOL/L (24-34); GFR AFRICAN AMERICAN 120 ML/MIN (>=60); GFR NON AFRICAN AMERICAN 103 ML/MIN (>=60); GLOBULIN 2.1 G/DL (2.5-4.1); GLUCOSE, SERUM 130 MG/DL (60-99); PHOSPHORUS, SERUM 2.2 MG/DL (2.5-4.5); POTASSIUM, SERUM 3.9 MMOL/L (3.5-5.3); SGOT(AST) 2024 U/L (5-40); SGPT(ALT) 2492 U/L (5-65); SODIUM, SERUM 140 MMOL/L (135-148); TOTAL BILIRUBIN 1.1 MG/DL (0-1.2); TOTAL PROTEIN 5.1 G/DL (6.0-8.5)
[2016-12-17 02:48] LABS: ANISOCYTOSIS 1+ (5-10/OIF) (0-5/OIF); OVALOCYTES 1+ (3-10/OIF) (0-2/OIF); PLATELET ESTIMATE DEC (ADEQUATE); TEARDROP SHAPED RBCS OCC (0-2/OIF)
[2016-12-17 03:44] LABS: INSTRUMENT SERIAL # 8087; pH 7.47 (7.37-7.43)
[2016-12-17 03:45] LABS: CARBOXYHEMOGLOBIN 0.8 % (0-3); HEMOBLOGIN CONTENT 12.2 G/DL (14-18); METHEMOGLOBIN 0.2 % (0-3); MODE CMV; O2 CONTENT 17.1 VOL% (18-24); OPERATOR ID 33449; PCO2 (CO2 TENSION) 31 MMHG (35-45); PO2 (O2 TENSION) 151 MMHG (79-93); SAMPLE Arterial; TIDAL VOLUME 430 ML
[2016-12-17 08:16] LABS: BASOPHILS 0.1 %; BASOPHILS ABSOLUTE 0.01 10/3/uL (0.0-0.16); EOSINOPHILS 0.6 %; EOSINOPHILS ABSOLUTE 0.05 10/3/uL (0.0-0.53); HEMATOCRIT 33.6 % (40.0-51.0); HEMOGLOBIN 11.5 g/dL (13.6-17.8); IMMATURE GRANULOCYTES 0.2 %; IMMATURE GRANULOCYTES ABSOLUTE 0.02 10/3/uL (0.0-0.11); LYMPHOCYTES 10.6 %; LYMPHOCYTES ABSOLUTE 0.91 10/3/uL (0.67-4.30); MEAN CORPUS HGB CONC 34.2 g/dL (32.0-36.0); MEAN CORPUSCULAR HEMOGLOB 28.7 pg (26.0-34.0); MEAN CORPUSCULAR VOLUME 83.8 fL (80-100); MEAN PLATELET VOLUME 10.9 fL (9.2-13.0); MONOCYTES ABSOLUTE 0.34 10/3/uL (0.21-1.20); NEUTROPHILS 84.5 %; NEUTROPHILS ABSOLUTE 7.22 10/3/uL (2.02-8.40); PLATELET COUNT 65 10/3/uL (150-400); RBC DISTRIBUTION WIDTH 18.5 % (12.0-16.0); RED CELL COUNT 4.01 10/6/uL (4.7-6.1); WHITE BLOOD CELLS 8.6 10/3/uL (4.5-10.5)
[2016-12-17 08:17] LABS: MANUAL DIFF NO %
[2016-12-17 08:26] LABS: PARTIAL THROMBO TIME 66.7 SEC (22.5-37.2)
[2016-12-17 08:29] LABS: BUN (BLOOD UREA NITROGEN) 11 MG/DL (6-23); CALCIUM, SERUM 7.8 MG/DL (8.5-10.4); CHLORIDE, SERUM 105 MMOL/L (96-112); CO2 (CARBON DIOXIDE) 28 MMOL/L (24-34); CREATININE 0.62 MG/DL (0.70-1.30); GFR AFRICAN AMERICAN 126 ML/MIN (>=60); GFR NON AFRICAN AMERICAN 109 ML/MIN (>=60); GLUCOSE, SERUM 129 MG/DL (60-99); POTASSIUM, SERUM 4.1 MMOL/L (3.5-5.3); SODIUM, SERUM 140 MMOL/L (135-148)
[2016-12-17 08:35] LABS: ANISOCYTOSIS 1+ (5-10/OIF) (0-5/OIF); PLATELET ESTIMATE DEC (ADEQUATE)
[2016-12-17 11:25] LABS: PROCALCITONIN 0.27 ng/mL (<0.5)
[2016-12-17 15:45] LABS: BASOPHILS 0 %; EOSINOPHILS 0.3 %; EOSINOPHILS ABSOLUTE 0.02 10/3/uL (0.0-0.53); HEMATOCRIT 32.8 % (40.0-51.0); IMMATURE GRANULOCYTES 0.4 %; IMMATURE GRANULOCYTES ABSOLUTE 0.03 10/3/uL (0.0-0.11); LYMPHOCYTES 8.7 %; LYMPHOCYTES ABSOLUTE 0.64 10/3/uL (0.67-4.30); MEAN CORPUS HGB CONC 33.5 g/dL (32.0-36.0); MEAN CORPUSCULAR HEMOGLOB 28.6 pg (26.0-34.0); MEAN CORPUSCULAR VOLUME 85.2 fL (80-100); MEAN PLATELET VOLUME 11.8 fL (9.2-13.0); MONOCYTES 4.1 %; NEUTROPHILS 86.5 %; NEUTROPHILS ABSOLUTE 6.37 10/3/uL (2.02-8.40); PLATELET COUNT 67 10/3/uL (150-400); RBC DISTRIBUTION WIDTH 18.6 % (12.0-16.0); RED CELL COUNT 3.85 10/6/uL (4.7-6.1); WHITE BLOOD CELLS 7.4 10/3/uL (4.5-10.5)
[2016-12-17 15:49] LABS: MANUAL DIFF NO %
[2016-12-17 16:05] LABS: BUN (BLOOD UREA NITROGEN) 11 MG/DL (6-23); CALCIUM, SERUM 7.7 MG/DL (8.5-10.4); CHLORIDE, SERUM 105 MMOL/L (96-112); CO2 (CARBON DIOXIDE) 30 MMOL/L (24-34); CREATININE 0.62 MG/DL (0.70-1.30); GFR AFRICAN AMERICAN 126 ML/MIN (>=60); GFR NON AFRICAN AMERICAN 109 ML/MIN (>=60); GLUCOSE, SERUM 95 MG/DL (60-99); POTASSIUM, SERUM 3.9 MMOL/L (3.5-5.3); SODIUM, SERUM 140 MMOL/L (135-148)
[2016-12-17 16:10] LABS: ANISOCYTOSIS 1+ (5-10/OIF) (0-5/OIF)
[2016-12-17 16:11] LABS: PLATELET ESTIMATE DEC (ADEQUATE)
[2016-12-17 20:07] LABS: BASOPHILS 0 %; EOSINOPHILS 0.4 %; EOSINOPHILS ABSOLUTE 0.03 10/3/uL (0.0-0.53); HEMATOCRIT 34.7 % (40.0-51.0); HEMOGLOBIN 11.6 g/dL (13.6-17.8); IMMATURE GRANULOCYTES 0.1 %; IMMATURE GRANULOCYTES ABSOLUTE 0.01 10/3/uL (0.0-0.11); LYMPHOCYTES 8.1 %; LYMPHOCYTES ABSOLUTE 0.59 10/3/uL (0.67-4.30); MEAN CORPUS HGB CONC 33.4 g/dL (32.0-36.0); MEAN CORPUSCULAR HEMOGLOB 28.7 pg (26.0-34.0); MEAN CORPUSCULAR VOLUME 85.9 fL (80-100); MONOCYTES 4.5 %; MONOCYTES ABSOLUTE 0.33 10/3/uL (0.21-1.20); NEUTROPHILS 86.9 %; NEUTROPHILS ABSOLUTE 6.31 10/3/uL (2.02-8.40); PLATELET COUNT 56 10/3/uL (150-400); RBC DISTRIBUTION WIDTH 18.6 % (12.0-16.0); RED CELL COUNT 4.04 10/6/uL (4.7-6.1); WHITE BLOOD CELLS 7.3 10/3/uL (4.5-10.5)
[2016-12-17 20:08] LABS: MANUAL DIFF NO %
[2016-12-17 20:20] LABS: BUN (BLOOD UREA NITROGEN) 10 MG/DL (6-23); CALCIUM, SERUM 8.1 MG/DL (8.5-10.4); CHLORIDE, SERUM 104 MMOL/L (96-112); CO2 (CARBON DIOXIDE) 28 MMOL/L (24-34); CREATININE 0.56 MG/DL (0.70-1.30); GFR AFRICAN AMERICAN 131 ML/MIN (>=60); GFR NON AFRICAN AMERICAN 113 ML/MIN (>=60); GLUCOSE, SERUM 88 MG/DL (60-99); POTASSIUM, SERUM 4.1 MMOL/L (3.5-5.3); SODIUM, SERUM 139 MMOL/L (135-148)
[2016-12-17 20:30] LABS: ANISOCYTOSIS 1+ (5-10/OIF) (0-5/OIF); PLATELET ESTIMATE DEC (ADEQUATE)
[2016-12-18 03:19] LABS: BASOPHILS 0.1 %; BASOPHILS ABSOLUTE 0.01 10/3/uL (0.0-0.16); EOSINOPHILS 0.3 %; EOSINOPHILS ABSOLUTE 0.02 10/3/uL (0.0-0.53); HEMATOCRIT 34.1 % (40.0-51.0); HEMOGLOBIN 11.4 g/dL (13.6-17.8); IMMATURE GRANULOCYTES 0.3 %; IMMATURE GRANULOCYTES ABSOLUTE 0.02 10/3/uL (0.0-0.11); LYMPHOCYTES 7.1 %; LYMPHOCYTES ABSOLUTE 0.54 10/3/uL (0.67-4.30); MEAN CORPUS HGB CONC 33.4 g/dL (32.0-36.0); MEAN CORPUSCULAR HEMOGLOB 28.6 pg (26.0-34.0); MEAN CORPUSCULAR VOLUME 85.5 fL (80-100); MEAN PLATELET VOLUME 11.2 fL (9.2-13.0); MONOCYTES 4.1 %; MONOCYTES ABSOLUTE 0.31 10/3/uL (0.21-1.20); NEUTROPHILS 88.1 %; NEUTROPHILS ABSOLUTE 6.74 10/3/uL (2.02-8.40); PLATELET COUNT 55 10/3/uL (150-400); RBC DISTRIBUTION WIDTH 18.4 % (12.0-16.0); RED CELL COUNT 3.99 10/6/uL (4.7-6.1); WHITE BLOOD CELLS 7.6 10/3/uL (4.5-10.5)
[2016-12-18 03:20] LABS: MANUAL DIFF NO %
[2016-12-18 03:45] LABS: A/G RATIO 1.3 (0.7-1.9); ALKALINE PHOSPHATASE 104 U/L (45-117); ANISOCYTOSIS 1+ (5-10/OIF) (0-5/OIF); BUN (BLOOD UREA NITROGEN) 9 MG/DL (6-23); CALCIUM, SERUM 8.6 MG/DL (8.5-10.4); CHLORIDE, SERUM 104 MMOL/L (96-112); CO2 (CARBON DIOXIDE) 30 MMOL/L (24-34); CREATININE 0.46 MG/DL (0.70-1.30); GFR AFRICAN AMERICAN 142 ML/MIN (>=60); GFR NON AFRICAN AMERICAN 123 ML/MIN (>=60); GLOBULIN 2.3 G/DL (2.5-4.1); GLUCOSE, SERUM 85 MG/DL (60-99); OVALOCYTES 1+ (3-10/OIF) (0-2/OIF); PHOSPHORUS, SERUM 2.3 MG/DL (2.5-4.5); PLATELET ESTIMATE DEC (ADEQUATE); POTASSIUM, SERUM 3.8 MMOL/L (3.5-5.3); SGOT(AST) 906 U/L (5-40); SODIUM, SERUM 140 MMOL/L (135-148); TOTAL PROTEIN 5.3 G/DL (6.0-8.5)
[2016-12-18 03:46] LABS: TOTAL BILIRUBIN 1.9 MG/DL (0-1.2)
[2016-12-18 04:00] LABS: BE (BASE EXCESS) 1.8 MEQ/L (0 +/- 2.5); CARBOXYHEMOGLOBIN 0.3 % (0-3); HCO3 (ACTUAL BICARBONATE) 25.3 MEQ/L (23-27); HEMOBLOGIN CONTENT 12.5 G/DL (14-18); INSTRUMENT SERIAL # 35151; METHEMOGLOBIN 0.6 % (0-3); MODE CMV; O2 CONTENT 17.3 VOL% (18-24); OPERATOR ID 30014; PCO2 (CO2 TENSION) 36 MMHG (35-45); PO2 (O2 TENSION) 129 MMHG (79-93); SAMPLE Arterial; TIDAL VOLUME 430 ML; pH 7.47 (7.37-7.43)
[2016-12-18 04:05] LABS: SGPT(ALT) 1751 U/L (5-65)
[2016-12-18 08:22] LABS: BASOPHILS 0 %; EOSINOPHILS 0.5 %; EOSINOPHILS ABSOLUTE 0.03 10/3/uL (0.0-0.53); HEMATOCRIT 33.3 % (40.0-51.0); HEMOGLOBIN 11.4 g/dL (13.6-17.8); IMMATURE GRANULOCYTES 0.2 %; IMMATURE GRANULOCYTES ABSOLUTE 0.01 10/3/uL (0.0-0.11); LYMPHOCYTES 9.4 %; MEAN CORPUS HGB CONC 34.2 g/dL (32.0-36.0); MEAN CORPUSCULAR HEMOGLOB 28.9 pg (26.0-34.0); MEAN CORPUSCULAR VOLUME 84.5 fL (80-100); MONOCYTES 4.5 %; MONOCYTES ABSOLUTE 0.29 10/3/uL (0.21-1.20); NEUTROPHILS 85.4 %; NEUTROPHILS ABSOLUTE 5.48 10/3/uL (2.02-8.40); PLATELET COUNT 53 10/3/uL (150-400); RBC DISTRIBUTION WIDTH 18.4 % (12.0-16.0); RED CELL COUNT 3.94 10/6/uL (4.7-6.1); WHITE BLOOD CELLS 6.4 10/3/uL (4.5-10.5)
[2016-12-18 08:23] LABS: MANUAL DIFF NO %
[2016-12-18 08:36] LABS: BUN (BLOOD UREA NITROGEN) 7 MG/DL (6-23); CALCIUM, SERUM 9.2 MG/DL (8.5-10.4); CHLORIDE, SERUM 104 MMOL/L (96-112); CO2 (CARBON DIOXIDE) 26 MMOL/L (24-34); CREATININE 0.45 MG/DL (0.70-1.30); GFR AFRICAN AMERICAN 144 ML/MIN (>=60); GFR NON AFRICAN AMERICAN 124 ML/MIN (>=60); GLUCOSE, SERUM 82 MG/DL (60-99); POTASSIUM, SERUM 3.8 MMOL/L (3.5-5.3); SODIUM, SERUM 141 MMOL/L (135-148)
[2016-12-18 08:48] LABS: PLATELET ESTIMATE DEC (ADEQUATE)
[2016-12-18 08:49] LABS: ANISOCYTOSIS 1+ (5-10/OIF) (0-5/OIF); OVALOCYTES 1+ (3-10/OIF) (0-2/OIF)
[2016-12-18 14:13] LABS: BASOPHILS 0 %; EOSINOPHILS 0.7 %; EOSINOPHILS ABSOLUTE 0.04 10/3/uL (0.0-0.53); HEMATOCRIT 34.2 % (40.0-51.0); HEMOGLOBIN 11.5 g/dL (13.6-17.8); IMMATURE GRANULOCYTES 0.5 %; IMMATURE GRANULOCYTES ABSOLUTE 0.03 10/3/uL (0.0-0.11); LYMPHOCYTES 8.2 %; MEAN CORPUS HGB CONC 33.6 g/dL (32.0-36.0); MEAN CORPUSCULAR HEMOGLOB 28.9 pg (26.0-34.0); MEAN CORPUSCULAR VOLUME 85.9 fL (80-100); MONOCYTES 4.8 %; MONOCYTES ABSOLUTE 0.29 10/3/uL (0.21-1.20); NEUTROPHILS 85.8 %; NEUTROPHILS ABSOLUTE 5.24 10/3/uL (2.02-8.40); RBC DISTRIBUTION WIDTH 18.3 % (12.0-16.0); RED CELL COUNT 3.98 10/6/uL (4.7-6.1); WHITE BLOOD CELLS 6.1 10/3/uL (4.5-10.5)
[2016-12-18 14:15] LABS: PLATELET COUNT 48 10/3/uL (150-400)
[2016-12-18 14:16] LABS: MANUAL DIFF NO %
[2016-12-18 14:35] LABS: BUN (BLOOD UREA NITROGEN) 8 MG/DL (6-23); CALCIUM, SERUM 8.7 MG/DL (8.5-10.4); CHLORIDE, SERUM 105 MMOL/L (96-112); CO2 (CARBON DIOXIDE) 26 MMOL/L (24-34); CREATININE 0.41 MG/DL (0.70-1.30); GFR AFRICAN AMERICAN 149 ML/MIN (>=60); GFR NON AFRICAN AMERICAN 129 ML/MIN (>=60); GLUCOSE, SERUM 107 MG/DL (60-99); PHOSPHORUS, SERUM 1.9 MG/DL (2.5-4.5); POTASSIUM, SERUM 3.7 MMOL/L (3.5-5.3); SODIUM, SERUM 140 MMOL/L (135-148)
[2016-12-18 14:48] LABS: ANISOCYTOSIS 1+ (5-10/OIF) (0-5/OIF); ELLIPTOCYTES 1+ (3-10/OIF) (0-2/OIF); PLATELET ESTIMATE DEC (ADEQUATE)
[2016-12-18 19:46] LABS: BASOPHILS 0 %; EOSINOPHILS 0.5 %; EOSINOPHILS ABSOLUTE 0.03 10/3/uL (0.0-0.53); HEMATOCRIT 33.9 % (40.0-51.0); HEMOGLOBIN 11.2 g/dL (13.6-17.8); IMMATURE GRANULOCYTES 0.2 %; IMMATURE GRANULOCYTES ABSOLUTE 0.01 10/3/uL (0.0-0.11); LYMPHOCYTES 8.5 %; LYMPHOCYTES ABSOLUTE 0.51 10/3/uL (0.67-4.30); MEAN CORPUSCULAR HEMOGLOB 28.3 pg (26.0-34.0); MEAN CORPUSCULAR VOLUME 85.6 fL (80-100); MEAN PLATELET VOLUME 10.3 fL (9.2-13.0); MONOCYTES 3.9 %; MONOCYTES ABSOLUTE 0.23 10/3/uL (0.21-1.20); NEUTROPHILS 86.9 %; NEUTROPHILS ABSOLUTE 5.19 10/3/uL (2.02-8.40); RBC DISTRIBUTION WIDTH 18.2 % (12.0-16.0); RED CELL COUNT 3.96 10/6/uL (4.7-6.1)
[2016-12-18 19:47] LABS: PLATELET COUNT 49 10/3/uL (150-400)
[2016-12-18 19:48] LABS: MANUAL DIFF NO %
[2016-12-18 19:58] LABS: BUN (BLOOD UREA NITROGEN) 6 MG/DL (6-23); CALCIUM, SERUM 8.7 MG/DL (8.5-10.4); CHLORIDE, SERUM 105 MMOL/L (96-112); CO2 (CARBON DIOXIDE) 30 MMOL/L (24-34); CREATININE 0.48 MG/DL (0.70-1.30); GFR AFRICAN AMERICAN 140 ML/MIN (>=60); GFR NON AFRICAN AMERICAN 121 ML/MIN (>=60); GLUCOSE, SERUM 95 MG/DL (60-99); POTASSIUM, SERUM 3.6 MMOL/L (3.5-5.3); SODIUM, SERUM 141 MMOL/L (135-148)
[2016-12-19 02:08] LABS: BASOPHILS 0 %; EOSINOPHILS ABSOLUTE 0.06 10/3/uL (0.0-0.53); HEMATOCRIT 33.9 % (40.0-51.0); HEMOGLOBIN 11.4 g/dL (13.6-17.8); IMMATURE GRANULOCYTES 0.5 %; IMMATURE GRANULOCYTES ABSOLUTE 0.03 10/3/uL (0.0-0.11); LYMPHOCYTES 8.4 %; MEAN CORPUS HGB CONC 33.6 g/dL (32.0-36.0); MEAN CORPUSCULAR HEMOGLOB 28.9 pg (26.0-34.0); MEAN PLATELET VOLUME 10.7 fL (9.2-13.0); MONOCYTES 5.4 %; MONOCYTES ABSOLUTE 0.32 10/3/uL (0.21-1.20); NEUTROPHILS 84.7 %; NEUTROPHILS ABSOLUTE 5.05 10/3/uL (2.02-8.40); RBC DISTRIBUTION WIDTH 18.1 % (12.0-16.0); RED CELL COUNT 3.94 10/6/uL (4.7-6.1)
[2016-12-19 02:09] LABS: MANUAL DIFF NO %; PLATELET COUNT 46 10/3/uL (150-400)
[2016-12-19 02:28] LABS: ALBUMIN 2.7 G/DL (3.5-5.0); ANISOCYTOSIS 1+ (5-10/OIF) (0-5/OIF); BUN (BLOOD UREA NITROGEN) 6 MG/DL (6-23); CALCIUM, SERUM 8.8 MG/DL (8.5-10.4); CHLORIDE, SERUM 105 MMOL/L (96-112); CO2 (CARBON DIOXIDE) 28 MMOL/L (24-34); CREATININE 0.46 MG/DL (0.70-1.30); GFR AFRICAN AMERICAN 142 ML/MIN (>=60); GFR NON AFRICAN AMERICAN 123 ML/MIN (>=60); GLUCOSE, SERUM 97 MG/DL (60-99); PHOSPHORUS, SERUM 1.9 MG/DL (2.5-4.5); POTASSIUM, SERUM 3.6 MMOL/L (3.5-5.3); SODIUM, SERUM 144 MMOL/L (135-148)
[2016-12-19 03:21] LABS: BE (BASE EXCESS) 3.1 MEQ/L (0 +/- 2.5); CARBOXYHEMOGLOBIN 0.3 % (0-3); HCO3 (ACTUAL BICARBONATE) 27.1 MEQ/L (23-27); HEMOBLOGIN CONTENT 12.3 G/DL (14-18); INSTRUMENT SERIAL # 35151; METHEMOGLOBIN 0.7 % (0-3); MODE CMV; O2 CONTENT 16.9 VOL% (18-24); OPERATOR ID 23712; PCO2 (CO2 TENSION) 39 MMHG (35-45); PO2 (O2 TENSION) 112 MMHG (79-93); SAMPLE Arterial; TIDAL VOLUME 430 ML; pH 7.46 (7.37-7.43)
[2016-12-19 08:39] LABS: BASOPHILS 0 %; EOSINOPHILS 1.4 %; EOSINOPHILS ABSOLUTE 0.08 10/3/uL (0.0-0.53); HEMOGLOBIN 10.9 g/dL (13.6-17.8); IMMATURE GRANULOCYTES 0.3 %; IMMATURE GRANULOCYTES ABSOLUTE 0.02 10/3/uL (0.0-0.11); LYMPHOCYTES 6.9 %; MEAN CORPUSCULAR HEMOGLOB 28.4 pg (26.0-34.0); MEAN CORPUSCULAR VOLUME 85.9 fL (80-100); MONOCYTES 6.2 %; MONOCYTES ABSOLUTE 0.36 10/3/uL (0.21-1.20); NEUTROPHILS 85.2 %; NEUTROPHILS ABSOLUTE 4.91 10/3/uL (2.02-8.40); PLATELET COUNT 51 10/3/uL (150-400); RBC DISTRIBUTION WIDTH 18.1 % (12.0-16.0); RED CELL COUNT 3.84 10/6/uL (4.7-6.1); WHITE BLOOD CELLS 5.8 10/3/uL (4.5-10.5)
[2016-12-19 08:40] LABS: MANUAL DIFF NO %
[2016-12-19 08:53] LABS: BUN (BLOOD UREA NITROGEN) 5 MG/DL (6-23); CALCIUM, SERUM 8.9 MG/DL (8.5-10.4); CHLORIDE, SERUM 104 MMOL/L (96-112); CO2 (CARBON DIOXIDE) 29 MMOL/L (24-34); CREATININE 0.49 MG/DL (0.70-1.30); GFR AFRICAN AMERICAN 139 ML/MIN (>=60); GFR NON AFRICAN AMERICAN 120 ML/MIN (>=60); GLUCOSE, SERUM 105 MG/DL (60-99); POTASSIUM, SERUM 3.6 MMOL/L (3.5-5.3); SODIUM, SERUM 140 MMOL/L (135-148)
[2016-12-19 14:01] LABS: HEPARIN-INDUCED PLATELET AB NEGATIVE (NEGATIVE); HIT PATIENT O.D. 0.073 OD (0.000-0.299)
[2016-12-19 16:48] LABS: BASOPHILS 0.2 %; BASOPHILS ABSOLUTE 0.01 10/3/uL (0.0-0.16); EOSINOPHILS 1.3 %; EOSINOPHILS ABSOLUTE 0.08 10/3/uL (0.0-0.53); HEMOGLOBIN 11.3 g/dL (13.6-17.8); IMMATURE GRANULOCYTES 0.3 %; IMMATURE GRANULOCYTES ABSOLUTE 0.02 10/3/uL (0.0-0.11); LYMPHOCYTES 7.9 %; LYMPHOCYTES ABSOLUTE 0.48 10/3/uL (0.67-4.30); MEAN CORPUS HGB CONC 33.2 g/dL (32.0-36.0); MEAN CORPUSCULAR HEMOGLOB 28.6 pg (26.0-34.0); MEAN CORPUSCULAR VOLUME 86.1 fL (80-100); MEAN PLATELET VOLUME 11.2 fL (9.2-13.0); MONOCYTES 5.6 %; MONOCYTES ABSOLUTE 0.34 10/3/uL (0.21-1.20); NEUTROPHILS 84.7 %; NEUTROPHILS ABSOLUTE 5.11 10/3/uL (2.02-8.40); RBC DISTRIBUTION WIDTH 18.2 % (12.0-16.0); RED CELL COUNT 3.95 10/6/uL (4.7-6.1)
[2016-12-19 16:57] LABS: BUN (BLOOD UREA NITROGEN) 5 MG/DL (6-23); CALCIUM, SERUM 9.3 MG/DL (8.5-10.4); CHLORIDE, SERUM 105 MMOL/L (96-112); CO2 (CARBON DIOXIDE) 28 MMOL/L (24-34); CREATININE 0.47 MG/DL (0.70-1.30); GFR AFRICAN AMERICAN 141 ML/MIN (>=60); GFR NON AFRICAN AMERICAN 122 ML/MIN (>=60); GLUCOSE, SERUM 87 MG/DL (60-99); PHOSPHORUS, SERUM 2.2 MG/DL (2.5-4.5); POTASSIUM, SERUM 3.8 MMOL/L (3.5-5.3); SODIUM, SERUM 140 MMOL/L (135-148)
[2016-12-19 17:13] LABS: PLATELET COUNT 49 10/3/uL (150-400)
[2016-12-19 17:15] LABS: MANUAL DIFF NO %
[2016-12-19 17:30] LABS: ANISOCYTOSIS 1+ (5-10/OIF) (0-5/OIF)
[2016-12-19 17:32] LABS: ELLIPTOCYTES 1+ (3-10/OIF) (0-2/OIF)
[2016-12-19 20:47] LABS: BASOPHILS 0 %; EOSINOPHILS 1.6 %; EOSINOPHILS ABSOLUTE 0.09 10/3/uL (0.0-0.53); HEMATOCRIT 34.3 % (40.0-51.0); HEMOGLOBIN 11.4 g/dL (13.6-17.8); IMMATURE GRANULOCYTES 0.5 %; IMMATURE GRANULOCYTES ABSOLUTE 0.03 10/3/uL (0.0-0.11); LYMPHOCYTES 10.6 %; LYMPHOCYTES ABSOLUTE 0.59 10/3/uL (0.67-4.30); MEAN CORPUS HGB CONC 33.2 g/dL (32.0-36.0); MEAN CORPUSCULAR HEMOGLOB 28.4 pg (26.0-34.0); MEAN CORPUSCULAR VOLUME 85.5 fL (80-100); MEAN PLATELET VOLUME 10.4 fL (9.2-13.0); MONOCYTES 7.6 %; MONOCYTES ABSOLUTE 0.42 10/3/uL (0.21-1.20); NEUTROPHILS 79.7 %; NEUTROPHILS ABSOLUTE 4.43 10/3/uL (2.02-8.40); RBC DISTRIBUTION WIDTH 18.1 % (12.0-16.0); RED CELL COUNT 4.01 10/6/uL (4.7-6.1); WHITE BLOOD CELLS 5.6 10/3/uL (4.5-10.5)
[2016-12-19 20:48] LABS: MANUAL DIFF NO %; PLATELET COUNT 46 10/3/uL (150-400)
[2016-12-19 20:56] LABS: BUN (BLOOD UREA NITROGEN) 5 MG/DL (6-23); CALCIUM, SERUM 8.7 MG/DL (8.5-10.4); CHLORIDE, SERUM 107 MMOL/L (96-112); CO2 (CARBON DIOXIDE) 27 MMOL/L (24-34); CREATININE 0.57 MG/DL (0.70-1.30); GFR AFRICAN AMERICAN 130 ML/MIN (>=60); GFR NON AFRICAN AMERICAN 112 ML/MIN (>=60); GLUCOSE, SERUM 94 MG/DL (60-99); PHOSPHORUS, SERUM 2.7 MG/DL (2.5-4.5); POTASSIUM, SERUM 4.2 MMOL/L (3.5-5.3); SODIUM, SERUM 139 MMOL/L (135-148)
[2016-12-20 02:38] LABS: BASOPHILS 0 %; EOSINOPHILS 2.1 %; EOSINOPHILS ABSOLUTE 0.13 10/3/uL (0.0-0.53); HEMATOCRIT 32.9 % (40.0-51.0); HEMOGLOBIN 11.2 g/dL (13.6-17.8); IMMATURE GRANULOCYTES 0.5 %; IMMATURE GRANULOCYTES ABSOLUTE 0.03 10/3/uL (0.0-0.11); LYMPHOCYTES 9.4 %; LYMPHOCYTES ABSOLUTE 0.58 10/3/uL (0.67-4.30); MEAN CORPUSCULAR HEMOGLOB 28.9 pg (26.0-34.0); MEAN CORPUSCULAR VOLUME 84.8 fL (80-100); MEAN PLATELET VOLUME 9.6 fL (9.2-13.0); MONOCYTES 8.2 %; MONOCYTES ABSOLUTE 0.51 10/3/uL (0.21-1.20); NEUTROPHILS 79.8 %; NEUTROPHILS ABSOLUTE 4.95 10/3/uL (2.02-8.40); RBC DISTRIBUTION WIDTH 18.1 % (12.0-16.0); RED CELL COUNT 3.88 10/6/uL (4.7-6.1); WHITE BLOOD CELLS 6.2 10/3/uL (4.5-10.5)
[2016-12-20 02:39] LABS: MANUAL DIFF NO %; PLATELET COUNT 46 10/3/uL (150-400)
[2016-12-20 02:58] LABS: A/G RATIO 1.1 (0.7-1.9); ALBUMIN 2.8 G/DL (3.5-5.0); ALKALINE PHOSPHATASE 109 U/L (45-117); BUN (BLOOD UREA NITROGEN) 5 MG/DL (6-23); CALCIUM, SERUM 8.5 MG/DL (8.5-10.4); CHLORIDE, SERUM 109 MMOL/L (96-112); CO2 (CARBON DIOXIDE) 26 MMOL/L (24-34); CREATININE 0.61 MG/DL (0.70-1.30); GFR AFRICAN AMERICAN 127 ML/MIN (>=60); GFR NON AFRICAN AMERICAN 109 ML/MIN (>=60); GLOBULIN 2.5 G/DL (2.5-4.1); GLUCOSE, SERUM 84 MG/DL (60-99); POTASSIUM, SERUM 3.7 MMOL/L (3.5-5.3); SGOT(AST) 174 U/L (5-40); SGPT(ALT) 808 U/L (5-65); SODIUM, SERUM 143 MMOL/L (135-148); TOTAL BILIRUBIN 2.2 MG/DL (0-1.2); TOTAL PROTEIN 5.3 G/DL (6.0-8.5)
[2016-12-20 02:59] LABS: PHOSPHORUS, SERUM 1.8 MG/DL (2.5-4.5)
[2016-12-20 03:05] LABS: RBC MORPHOLOGY NORM (NORMAL)
[2016-12-20 03:10] LABS: INTERNATIONAL NORMAL RATI 1.2 UNITS (-); PROTIME (NOT ORD) 15.5 SEC (12.0-14.5)
[2016-12-20 03:11] LABS: PARTIAL THROMBO TIME 68.4 SEC (22.5-37.2)
[2016-12-20 03:46] LABS: BE (BASE EXCESS) 1.7 MEQ/L (0 +/- 2.5); CARBOXYHEMOGLOBIN 0.6 % (0-3); HCO3 (ACTUAL BICARBONATE) 23.3 MEQ/L (23-27); HEMOBLOGIN CONTENT 12.3 G/DL (14-18); INSTRUMENT SERIAL # 35151; METHEMOGLOBIN 0.7 % (0-3); O2 CONTENT 16.5 VOL% (18-24); PCO2 (CO2 TENSION) 28 MMHG (35-45); PO2 (O2 TENSION) 81 MMHG (79-93); SAMPLE Arterial; pH 7.54 (7.37-7.43)
[2016-12-20 08:19] LABS: PHOSPHORUS, SERUM 3.1 MG/DL (2.5-4.5)
[2016-12-20 09:33] LABS: BASOPHILS 0.2 %; BASOPHILS ABSOLUTE 0.01 10/3/uL (0.0-0.16); EOSINOPHILS 2.9 %; EOSINOPHILS ABSOLUTE 0.19 10/3/uL (0.0-0.53); HEMATOCRIT 33.4 % (40.0-51.0); HEMOGLOBIN 11.3 g/dL (13.6-17.8); IMMATURE GRANULOCYTES 0.5 %; IMMATURE GRANULOCYTES ABSOLUTE 0.03 10/3/uL (0.0-0.11); LYMPHOCYTES 9.2 %; MEAN CORPUS HGB CONC 33.8 g/dL (32.0-36.0); MEAN CORPUSCULAR HEMOGLOB 28.9 pg (26.0-34.0); MEAN CORPUSCULAR VOLUME 85.4 fL (80-100); MEAN PLATELET VOLUME 10.8 fL (9.2-13.0); MONOCYTES 7.9 %; MONOCYTES ABSOLUTE 0.51 10/3/uL (0.21-1.20); NEUTROPHILS 79.3 %; NEUTROPHILS ABSOLUTE 5.15 10/3/uL (2.02-8.40); PLATELET COUNT 53 10/3/uL (150-400); RBC DISTRIBUTION WIDTH 18.2 % (12.0-16.0); RED CELL COUNT 3.91 10/6/uL (4.7-6.1); WHITE BLOOD CELLS 6.5 10/3/uL (4.5-10.5)
[2016-12-20 09:35] LABS: MANUAL DIFF NO %
[2016-12-20 09:40] LABS: BUN (BLOOD UREA NITROGEN) 6 MG/DL (6-23); CALCIUM, SERUM 7.9 MG/DL (8.5-10.4); CHLORIDE, SERUM 109 MMOL/L (96-112); CO2 (CARBON DIOXIDE) 25 MMOL/L (24-34); CREATININE 0.53 MG/DL (0.70-1.30); GFR AFRICAN AMERICAN 134 ML/MIN (>=60); GFR NON AFRICAN AMERICAN 116 ML/MIN (>=60); GLUCOSE, SERUM 88 MG/DL (60-99); POTASSIUM, SERUM 3.8 MMOL/L (3.5-5.3); SODIUM, SERUM 143 MMOL/L (135-148)
[2016-12-20 09:52] LABS: ANISOCYTOSIS 1+ (5-10/OIF) (0-5/OIF); PLATELET ESTIMATE DEC (ADEQUATE)
[2016-12-20 09:53] LABS: POIKILOCYTOSIS 1+ (5-10/OIF) (0-5/OIF); POLYCHROMASIA 1+ (2-5/OIF) (0-1/OIF); TOXIC GRANULATION 1+
[2016-12-20 09:54] LABS: OVALOCYTES 1+ (3-10/OIF) (0-2/OIF)
[2016-12-20 14:39] LABS: BASOPHILS 0.1 %; BASOPHILS ABSOLUTE 0.01 10/3/uL (0.0-0.16); EOSINOPHILS 1.5 %; EOSINOPHILS ABSOLUTE 0.11 10/3/uL (0.0-0.53); HEMOGLOBIN 11.5 g/dL (13.6-17.8); IMMATURE GRANULOCYTES 0.7 %; IMMATURE GRANULOCYTES ABSOLUTE 0.05 10/3/uL (0.0-0.11); LYMPHOCYTES 7.4 %; LYMPHOCYTES ABSOLUTE 0.56 10/3/uL (0.67-4.30); MEAN CORPUS HGB CONC 33.8 g/dL (32.0-36.0); MEAN CORPUSCULAR HEMOGLOB 28.5 pg (26.0-34.0); MEAN CORPUSCULAR VOLUME 84.2 fL (80-100); MEAN PLATELET VOLUME 11.1 fL (9.2-13.0); MONOCYTES 9.1 %; MONOCYTES ABSOLUTE 0.69 10/3/uL (0.21-1.20); NEUTROPHILS 81.2 %; NEUTROPHILS ABSOLUTE 6.13 10/3/uL (2.02-8.40); PLATELET COUNT 57 10/3/uL (150-400); RBC DISTRIBUTION WIDTH 18.1 % (12.0-16.0); RED CELL COUNT 4.04 10/6/uL (4.7-6.1); WHITE BLOOD CELLS 7.6 10/3/uL (4.5-10.5)
[2016-12-20 14:40] LABS: MANUAL DIFF NO %
[2016-12-20 14:51] LABS: BUN (BLOOD UREA NITROGEN) 5 MG/DL (6-23); CALCIUM, SERUM 8.1 MG/DL (8.5-10.4); CHLORIDE, SERUM 108 MMOL/L (96-112); CO2 (CARBON DIOXIDE) 27 MMOL/L (24-34); CREATININE 0.58 MG/DL (0.70-1.30); GFR AFRICAN AMERICAN 129 ML/MIN (>=60); GFR NON AFRICAN AMERICAN 112 ML/MIN (>=60); GLUCOSE, SERUM 113 MG/DL (60-99); PHOSPHORUS, SERUM 2.5 MG/DL (2.5-4.5); POTASSIUM, SERUM 3.9 MMOL/L (3.5-5.3); SODIUM, SERUM 140 MMOL/L (135-148)
[2016-12-20 15:21] LABS: ANISOCYTOSIS 1+ (5-10/OIF) (0-5/OIF); OVALOCYTES 1+ (3-10/OIF) (0-2/OIF); PLATELET ESTIMATE DEC (ADEQUATE)
[2016-12-21 03:59] LABS: BASOPHILS 0.2 %; BASOPHILS ABSOLUTE 0.01 10/3/uL (0.0-0.16); EOSINOPHILS 3.4 %; EOSINOPHILS ABSOLUTE 0.21 10/3/uL (0.0-0.53); HEMATOCRIT 30.7 % (40.0-51.0); HEMOGLOBIN 10.3 g/dL (13.6-17.8); IMMATURE GRANULOCYTES 0.7 %; IMMATURE GRANULOCYTES ABSOLUTE 0.04 10/3/uL (0.0-0.11); LYMPHOCYTES 11.7 %; LYMPHOCYTES ABSOLUTE 0.71 10/3/uL (0.67-4.30); MANUAL DIFF NO %; MEAN CORPUS HGB CONC 33.6 g/dL (32.0-36.0); MEAN CORPUSCULAR HEMOGLOB 28.5 pg (26.0-34.0); MEAN PLATELET VOLUME 9.9 fL (9.2-13.0); MONOCYTES 11.2 %; MONOCYTES ABSOLUTE 0.68 10/3/uL (0.21-1.20); NEUTROPHILS 72.8 %; NEUTROPHILS ABSOLUTE 4.44 10/3/uL (2.02-8.40); PLATELET COUNT 57 10/3/uL (150-400); RED CELL COUNT 3.61 10/6/uL (4.7-6.1); WHITE BLOOD CELLS 6.1 10/3/uL (4.5-10.5)
[2016-12-21 04:13] LABS: A/G RATIO 1.1 (0.7-1.9); ALBUMIN 2.8 G/DL (3.5-5.0); BUN (BLOOD UREA NITROGEN) 8 MG/DL (6-23); CALCIUM, SERUM 7.9 MG/DL (8.5-10.4); CHLORIDE, SERUM 108 MMOL/L (96-112); CO2 (CARBON DIOXIDE) 26 MMOL/L (24-34); CREATININE 0.73 MG/DL (0.70-1.30); GFR AFRICAN AMERICAN 118 ML/MIN (>=60); GFR NON AFRICAN AMERICAN 102 ML/MIN (>=60); GLOBULIN 2.5 G/DL (2.5-4.1); GLUCOSE, SERUM 106 MG/DL (60-99); PHOSPHORUS, SERUM 2.8 MG/DL (2.5-4.5); SGOT(AST) 90 U/L (5-40); SGPT(ALT) 554 U/L (5-65); SODIUM, SERUM 140 MMOL/L (135-148); TOTAL BILIRUBIN 1.8 MG/DL (0-1.2); TOTAL PROTEIN 5.3 G/DL (6.0-8.5)
[2016-12-21 04:14] LABS: ALKALINE PHOSPHATASE 95 U/L (45-117); DIRECT BILIRUBIN 0.5 MG/DL (0.0-0.4); INDIRECT BILIRUBIN(NOT ORDER) 1.3 MG/DL (0.1-0.9)
[2016-12-21 04:19] LABS: PLATELET ESTIMATE DEC (ADEQUATE)
[2016-12-21 04:21] LABS: ANISOCYTOSIS 1+ (5-10/OIF) (0-5/OIF); BURR CELLS 1+ (3-10/OIF) (0-2/OIF)
[2016-12-21 18:50] LABS: POTASSIUM, SERUM 3.9 MMOL/L (3.5-5.3)
[2016-12-22 01:02] LABS: PARTIAL THROMBO TIME 73.4 SEC (22.5-37.2)
[2016-12-22 02:51] LABS: BASOPHILS 0.1 %; BASOPHILS ABSOLUTE 0.01 10/3/uL (0.0-0.16); EOSINOPHILS 3.1 %; EOSINOPHILS ABSOLUTE 0.21 10/3/uL (0.0-0.53); HEMOGLOBIN 10.7 g/dL (13.6-17.8); IMMATURE GRANULOCYTES 0.7 %; IMMATURE GRANULOCYTES ABSOLUTE 0.05 10/3/uL (0.0-0.11); INTERNATIONAL NORMAL RATI 1.1 UNITS (-); LYMPHOCYTES 12.7 %; LYMPHOCYTES ABSOLUTE 0.85 10/3/uL (0.67-4.30); MEAN CORPUS HGB CONC 33.4 g/dL (32.0-36.0); MEAN CORPUSCULAR HEMOGLOB 28.5 pg (26.0-34.0); MEAN CORPUSCULAR VOLUME 85.3 fL (80-100); MEAN PLATELET VOLUME 11.5 fL (9.2-13.0); MONOCYTES 12.8 %; MONOCYTES ABSOLUTE 0.86 10/3/uL (0.21-1.20); NEUTROPHILS 70.6 %; NEUTROPHILS ABSOLUTE 4.72 10/3/uL (2.02-8.40); PROTIME (NOT ORD) 14.2 SEC (12.0-14.5); RBC DISTRIBUTION WIDTH 17.7 % (12.0-16.0); RED CELL COUNT 3.75 10/6/uL (4.7-6.1); WHITE BLOOD CELLS 6.7 10/3/uL (4.5-10.5)
[2016-12-22 02:54] LABS: MANUAL DIFF NO %; PLATELET COUNT 82 10/3/uL (150-400)
[2016-12-22 03:04] LABS: BUN (BLOOD UREA NITROGEN) 11 MG/DL (6-23); CALCIUM, SERUM 7.9 MG/DL (8.5-10.4); CHLORIDE, SERUM 102 MMOL/L (96-112); CO2 (CARBON DIOXIDE) 29 MMOL/L (24-34); CREATININE 0.89 MG/DL (0.70-1.30); GFR AFRICAN AMERICAN 108 ML/MIN (>=60); GFR NON AFRICAN AMERICAN 94 ML/MIN (>=60); GLUCOSE, SERUM 104 MG/DL (60-99); SODIUM, SERUM 137 MMOL/L (135-148)
[2016-12-22 12:35] LABS: BUN (BLOOD UREA NITROGEN) 12 MG/DL (6-23); CALCIUM, SERUM 8.2 MG/DL (8.5-10.4); CHLORIDE, SERUM 101 MMOL/L (96-112); CO2 (CARBON DIOXIDE) 32 MMOL/L (24-34); CREATININE 0.97 MG/DL (0.70-1.30); GFR AFRICAN AMERICAN 99 ML/MIN (>=60); GFR NON AFRICAN AMERICAN 85 ML/MIN (>=60); GLUCOSE, SERUM 106 MG/DL (60-99); POTASSIUM, SERUM 3.8 MMOL/L (3.5-5.3); SODIUM, SERUM 139 MMOL/L (135-148)
[2016-12-23 03:57] LABS: BASOPHILS 0.2 %; BASOPHILS ABSOLUTE 0.01 10/3/uL (0.0-0.16); EOSINOPHILS 4.1 %; HEMATOCRIT 30.4 % (40.0-51.0); HEMOGLOBIN 10.4 g/dL (13.6-17.8); IMMATURE GRANULOCYTES 0.6 %; IMMATURE GRANULOCYTES ABSOLUTE 0.03 10/3/uL (0.0-0.11); LYMPHOCYTES 16.8 %; LYMPHOCYTES ABSOLUTE 0.82 10/3/uL (0.67-4.30); MEAN CORPUS HGB CONC 34.2 g/dL (32.0-36.0); MEAN CORPUSCULAR HEMOGLOB 29.1 pg (26.0-34.0); MEAN CORPUSCULAR VOLUME 84.9 fL (80-100); MEAN PLATELET VOLUME 11.1 fL (9.2-13.0); MONOCYTES 18.4 %; NEUTROPHILS 59.9 %; NEUTROPHILS ABSOLUTE 2.93 10/3/uL (2.02-8.40); PLATELET COUNT 87 10/3/uL (150-400); RBC DISTRIBUTION WIDTH 17.4 % (12.0-16.0); RED CELL COUNT 3.58 10/6/uL (4.7-6.1); WHITE BLOOD CELLS 4.9 10/3/uL (4.5-10.5)
[2016-12-23 03:59] LABS: MANUAL DIFF NO %
[2016-12-23 04:05] LABS: INTERNATIONAL NORMAL RATI 1.4 UNITS (-)
[2016-12-23 04:08] LABS: ALBUMIN 2.8 G/DL (3.5-5.0); BUN (BLOOD UREA NITROGEN) 14 MG/DL (6-23); CALCIUM, SERUM 8.4 MG/DL (8.5-10.4); CHLORIDE, SERUM 100 MMOL/L (96-112); CO2 (CARBON DIOXIDE) 31 MMOL/L (24-34); CREATININE 0.99 MG/DL (0.70-1.30); GFR AFRICAN AMERICAN 96 ML/MIN (>=60); GFR NON AFRICAN AMERICAN 83 ML/MIN (>=60); GLUCOSE, SERUM 107 MG/DL (60-99); PHOSPHORUS, SERUM 3.5 MG/DL (2.5-4.5); POTASSIUM, SERUM 3.8 MMOL/L (3.5-5.3); SODIUM, SERUM 136 MMOL/L (135-148)
[2016-12-23 04:11] LABS: PROTIME (NOT ORD) 16.8 SEC (12.0-14.5)
[2016-12-24 05:04] LABS: BASOPHILS 0.2 %; BASOPHILS ABSOLUTE 0.02 10/3/uL (0.0-0.16); EOSINOPHILS 0.7 %; EOSINOPHILS ABSOLUTE 0.08 10/3/uL (0.0-0.53); HEMOGLOBIN 9.1 g/dL (13.6-17.8); IMMATURE GRANULOCYTES 0.7 %; IMMATURE GRANULOCYTES ABSOLUTE 0.08 10/3/uL (0.0-0.11); LYMPHOCYTES 8.8 %; LYMPHOCYTES ABSOLUTE 1.04 10/3/uL (0.67-4.30); MEAN CORPUS HGB CONC 33.3 g/dL (32.0-36.0); MEAN CORPUSCULAR HEMOGLOB 28.7 pg (26.0-34.0); MEAN CORPUSCULAR VOLUME 86.1 fL (80-100); MEAN PLATELET VOLUME 11.4 fL (9.2-13.0); MONOCYTES 7.7 %; MONOCYTES ABSOLUTE 0.91 10/3/uL (0.21-1.20); NEUTROPHILS 81.9 %; NEUTROPHILS ABSOLUTE 9.72 10/3/uL (2.02-8.40); RBC DISTRIBUTION WIDTH 17.4 % (12.0-16.0); RED CELL COUNT 3.17 10/6/uL (4.7-6.1)
[2016-12-24 05:08] LABS: INTERNATIONAL NORMAL RATI 1.5 UNITS (-); PROTIME (NOT ORD) 17.7 SEC (12.0-14.5)
[2016-12-24 05:09] LABS: HEMATOCRIT 27.3 % (40.0-51.0); MANUAL DIFF NO %; PLATELET COUNT 141 10/3/uL (150-400); WHITE BLOOD CELLS 11.9 10/3/uL (4.5-10.5)
[2016-12-24 05:18] LABS: CALCIUM, SERUM 8.5 MG/DL (8.5-10.4); CHLORIDE, SERUM 96 MMOL/L (96-112); CO2 (CARBON DIOXIDE) 29 MMOL/L (24-34); CREATININE 1.02 MG/DL (0.70-1.30); GFR AFRICAN AMERICAN 93 ML/MIN (>=60); GFR NON AFRICAN AMERICAN 80 ML/MIN (>=60); PHOSPHORUS, SERUM 3.4 MG/DL (2.5-4.5); POTASSIUM, SERUM 4.4 MMOL/L (3.5-5.3); SODIUM, SERUM 132 MMOL/L (135-148)
[2016-12-24 05:23] LABS: BUN (BLOOD UREA NITROGEN) 18 MG/DL (6-23); GLUCOSE, SERUM 138 MG/DL (60-99)
[2016-12-24 10:23] LABS: A/G RATIO 1.2 (0.7-1.9); ALKALINE PHOSPHATASE 88 U/L (45-117); BUN (BLOOD UREA NITROGEN) 21 MG/DL (6-23); CALCIUM, SERUM 8.2 MG/DL (8.5-10.4); CHLORIDE, SERUM 100 MMOL/L (96-112); CO2 (CARBON DIOXIDE) 23 MMOL/L (24-34); CREATININE 1.21 MG/DL (0.70-1.30); GFR AFRICAN AMERICAN 75 ML/MIN (>=60); GFR NON AFRICAN AMERICAN 65 ML/MIN (>=60); GLOBULIN 2.5 G/DL (2.5-4.1); GLUCOSE, SERUM 147 MG/DL (60-99); POTASSIUM, SERUM 4.8 MMOL/L (3.5-5.3); SGOT(AST) 42 U/L (5-40); SGPT(ALT) 207 U/L (5-65); SODIUM, SERUM 132 MMOL/L (135-148); TOTAL BILIRUBIN 1.4 MG/DL (0-1.2); TOTAL PROTEIN 5.5 G/DL (6.0-8.5)
[2016-12-24 17:43] LABS: INTERNATIONAL NORMAL RATI 1.5 UNITS (-); MEAN CORPUS HGB CONC 33.5 g/dL (32.0-36.0); MEAN CORPUSCULAR VOLUME 86.5 fL (80-100); MEAN PLATELET VOLUME 10.5 fL (9.2-13.0); PARTIAL THROMBO TIME 35.2 SEC (22.5-37.2); PLATELET COUNT 105 10/3/uL (150-400); PROTIME (NOT ORD) 18.3 SEC (12.0-14.5); RBC DISTRIBUTION WIDTH 18.2 % (12.0-16.0); WHITE BLOOD CELLS 10.4 10/3/uL (4.5-10.5)
[2016-12-24 17:45] LABS: HEMATOCRIT 16.7 % (40.0-51.0); HEMOGLOBIN 5.6 g/dL (13.6-17.8); RED CELL COUNT 1.93 10/6/uL (4.7-6.1)
[2016-12-24 17:47] LABS: MANUAL DIFF YES %
[2016-12-24 18:12] LABS: BAND NEUTROPHILS 24 %; LYMPHOCYTES 5 %; LYMPHOCYTES ABSOLUTE (CALC) 0.52 10/3/uL (0.67-4.30); MONOCYTES 2 %; MONOCYTES ABSOLUTE (CALC) 0.21 10/3/uL (0.21-1.20); MYELOCYTES 1 %; NEUTROPHILS ABSOLUTE (CALC) 9.57 10/3/uL (2.02-8.40); SEGMENTED NEUTROPHIL (0) 68 %; TOTAL NUCLEATED CELLS 100
[2016-12-24 18:15] LABS: ANISOCYTOSIS 1+ (5-10/OIF) (0-5/OIF); OVALOCYTES 1+ (3-10/OIF) (0-2/OIF); PLATELET ESTIMATE SLT DEC (ADEQUATE)
[2016-12-25 14:19] LABS: BASOPHILS 0.2 %; BASOPHILS ABSOLUTE 0.02 10/3/uL (0.0-0.16); EOSINOPHILS 0.5 %; EOSINOPHILS ABSOLUTE 0.06 10/3/uL (0.0-0.53); IMMATURE GRANULOCYTES 0.5 %; IMMATURE GRANULOCYTES ABSOLUTE 0.07 10/3/uL (0.0-0.11); LYMPHOCYTES 6.7 %; LYMPHOCYTES ABSOLUTE 0.86 10/3/uL (0.67-4.30); MEAN CORPUS HGB CONC 34.8 g/dL (32.0-36.0); MEAN CORPUSCULAR HEMOGLOB 29.2 pg (26.0-34.0); MEAN PLATELET VOLUME 9.7 fL (9.2-13.0); MONOCYTES 6.2 %; NEUTROPHILS 85.9 %; NEUTROPHILS ABSOLUTE 11.12 10/3/uL (2.02-8.40); PLATELET COUNT 126 10/3/uL (150-400); WHITE BLOOD CELLS 12.9 10/3/uL (4.5-10.5)
[2016-12-25 14:22] LABS: HEMATOCRIT 27.9 % (40.0-51.0); HEMOGLOBIN 9.7 g/dL (13.6-17.8); MANUAL DIFF NO %; RED CELL COUNT 3.32 10/6/uL (4.7-6.1)
[2016-12-25 14:30] LABS: INTERNATIONAL NORMAL RATI 1.6 UNITS (-); PARTIAL THROMBO TIME 29.6 SEC (22.5-37.2); PROTIME (NOT ORD) 18.5 SEC (12.0-14.5)
[2016-12-25 14:32] LABS: CALCIUM, SERUM 8.4 MG/DL (8.5-10.4); CHLORIDE, SERUM 103 MMOL/L (96-112); CO2 (CARBON DIOXIDE) 26 MMOL/L (24-34); GFR AFRICAN AMERICAN 69 ML/MIN (>=60); GFR NON AFRICAN AMERICAN 60 ML/MIN (>=60); POTASSIUM, SERUM 4.5 MMOL/L (3.5-5.3); SODIUM, SERUM 137 MMOL/L (135-148)
[2016-12-25 14:34] LABS: BUN (BLOOD UREA NITROGEN) 28 MG/DL (6-23); GLUCOSE, SERUM 105 MG/DL (60-99)
[2016-12-25 22:08] LABS: HEMATOCRIT 27.9 % (40.0-51.0); HEMOGLOBIN 9.6 g/dL (13.6-17.8)
[2016-12-26 06:40] LABS: BASOPHILS 0.1 %; BASOPHILS ABSOLUTE 0.01 10/3/uL (0.0-0.16); EOSINOPHILS 1.8 %; EOSINOPHILS ABSOLUTE 0.17 10/3/uL (0.0-0.53); HEMATOCRIT 27.7 % (40.0-51.0); HEMOGLOBIN 9.5 g/dL (13.6-17.8); IMMATURE GRANULOCYTES 0.7 %; IMMATURE GRANULOCYTES ABSOLUTE 0.07 10/3/uL (0.0-0.11); LYMPHOCYTES 10.4 %; LYMPHOCYTES ABSOLUTE 0.99 10/3/uL (0.67-4.30); MEAN CORPUS HGB CONC 34.3 g/dL (32.0-36.0); MEAN CORPUSCULAR HEMOGLOB 29.6 pg (26.0-34.0); MEAN CORPUSCULAR VOLUME 86.3 fL (80-100); MEAN PLATELET VOLUME 9.7 fL (9.2-13.0); MONOCYTES 7.5 %; MONOCYTES ABSOLUTE 0.71 10/3/uL (0.21-1.20); NEUTROPHILS 79.5 %; NEUTROPHILS ABSOLUTE 7.57 10/3/uL (2.02-8.40); PLATELET COUNT 125 10/3/uL (150-400); RBC DISTRIBUTION WIDTH 16.8 % (12.0-16.0); RED CELL COUNT 3.21 10/6/uL (4.7-6.1); WHITE BLOOD CELLS 9.5 10/3/uL (4.5-10.5)
[2016-12-26 06:41] LABS: MANUAL DIFF NO %
[2016-12-26 06:53] LABS: BUN (BLOOD UREA NITROGEN) 20 MG/DL (6-23); CALCIUM, SERUM 8.4 MG/DL (8.5-10.4); CHLORIDE, SERUM 101 MMOL/L (96-112); CO2 (CARBON DIOXIDE) 27 MMOL/L (24-34); CREATININE 1.21 MG/DL (0.70-1.30); GFR AFRICAN AMERICAN 75 ML/MIN (>=60); GFR NON AFRICAN AMERICAN 65 ML/MIN (>=60); GLUCOSE, SERUM 123 MG/DL (60-99); PHOSPHORUS, SERUM 2.1 MG/DL (2.5-4.5); POTASSIUM, SERUM 4.2 MMOL/L (3.5-5.3); SODIUM, SERUM 135 MMOL/L (135-148)
[2016-12-26 14:38] LABS: HEMOGLOBIN 10.5 g/dL (13.6-17.8)
[2016-12-26 14:40] LABS: HEMATOCRIT 31.3 % (40.0-51.0)
[2016-12-27 05:48] LABS: BASOPHILS 0.1 %; BASOPHILS ABSOLUTE 0.01 10/3/uL (0.0-0.16); EOSINOPHILS 1.5 %; EOSINOPHILS ABSOLUTE 0.14 10/3/uL (0.0-0.53); HEMATOCRIT 30.1 % (40.0-51.0); HEMOGLOBIN 10.3 g/dL (13.6-17.8); IMMATURE GRANULOCYTES 0.8 %; IMMATURE GRANULOCYTES ABSOLUTE 0.07 10/3/uL (0.0-0.11); LYMPHOCYTES 10.4 %; LYMPHOCYTES ABSOLUTE 0.95 10/3/uL (0.67-4.30); MEAN CORPUS HGB CONC 34.2 g/dL (32.0-36.0); MEAN CORPUSCULAR VOLUME 87.8 fL (80-100); MEAN PLATELET VOLUME 9.7 fL (9.2-13.0); MONOCYTES ABSOLUTE 0.73 10/3/uL (0.21-1.20); NEUTROPHILS 79.2 %; NEUTROPHILS ABSOLUTE 7.26 10/3/uL (2.02-8.40); PLATELET COUNT 154 10/3/uL (150-400); RBC DISTRIBUTION WIDTH 16.8 % (12.0-16.0); RED CELL COUNT 3.43 10/6/uL (4.7-6.1); WHITE BLOOD CELLS 9.2 10/3/uL (4.5-10.5)
[2016-12-27 05:49] LABS: MANUAL DIFF NO %
[2016-12-27 06:00] LABS: CALCIUM, SERUM 8.7 MG/DL (8.5-10.4); CHLORIDE, SERUM 103 MMOL/L (96-112); CO2 (CARBON DIOXIDE) 29 MMOL/L (24-34); CREATININE 1.01 MG/DL (0.70-1.30); GFR AFRICAN AMERICAN 94 ML/MIN (>=60); GFR NON AFRICAN AMERICAN 81 ML/MIN (>=60); POTASSIUM, SERUM 4.4 MMOL/L (3.5-5.3); SODIUM, SERUM 138 MMOL/L (135-148)
[2016-12-27 06:01] LABS: BUN (BLOOD UREA NITROGEN) 15 MG/DL (6-23); GLUCOSE, SERUM 88 MG/DL (60-99)
[2016-12-28 05:07] LABS: BASOPHILS 0.2 %; BASOPHILS ABSOLUTE 0.02 10/3/uL (0.0-0.16); EOSINOPHILS 1.3 %; EOSINOPHILS ABSOLUTE 0.12 10/3/uL (0.0-0.53); HEMOGLOBIN 11.7 g/dL (13.6-17.8); IMMATURE GRANULOCYTES 0.9 %; IMMATURE GRANULOCYTES ABSOLUTE 0.08 10/3/uL (0.0-0.11); LYMPHOCYTES 9.5 %; LYMPHOCYTES ABSOLUTE 0.86 10/3/uL (0.67-4.30); MEAN CORPUS HGB CONC 33.4 g/dL (32.0-36.0); MEAN CORPUSCULAR VOLUME 89.7 fL (80-100); MEAN PLATELET VOLUME 10.1 fL (9.2-13.0); NEUTROPHILS 78.1 %; NEUTROPHILS ABSOLUTE 7.04 10/3/uL (2.02-8.40); PLATELET COUNT 187 10/3/uL (150-400); RBC DISTRIBUTION WIDTH 17.5 % (12.0-16.0)
[2016-12-28 05:08] LABS: MANUAL DIFF NO %
[2016-12-28 05:19] LABS: BUN (BLOOD UREA NITROGEN) 13 MG/DL (6-23); CALCIUM, SERUM 9.6 MG/DL (8.5-10.4); CHLORIDE, SERUM 99 MMOL/L (96-112); CO2 (CARBON DIOXIDE) 30 MMOL/L (24-34); CREATININE 1.12 MG/DL (0.70-1.30); GFR AFRICAN AMERICAN 83 ML/MIN (>=60); GFR NON AFRICAN AMERICAN 72 ML/MIN (>=60); GLUCOSE, SERUM 88 MG/DL (60-99); SODIUM, SERUM 134 MMOL/L (135-148)
[2016-12-29 07:10] LABS: A/G RATIO 0.8 (0.7-1.9); ALBUMIN 3.2 G/DL (3.5-5.0); ALKALINE PHOSPHATASE 127 U/L (45-117); BUN (BLOOD UREA NITROGEN) 19 MG/DL (6-23); CALCIUM, SERUM 9.5 MG/DL (8.5-10.4); CHLORIDE, SERUM 100 MMOL/L (96-112); CO2 (CARBON DIOXIDE) 27 MMOL/L (24-34); CREATININE 1.02 MG/DL (0.70-1.30); GFR AFRICAN AMERICAN 93 ML/MIN (>=60); GFR NON AFRICAN AMERICAN 80 ML/MIN (>=60); GLOBULIN 3.8 G/DL (2.5-4.1); GLUCOSE, SERUM 92 MG/DL (60-99); POTASSIUM, SERUM 4.2 MMOL/L (3.5-5.3); SGOT(AST) 36 U/L (5-40); SGPT(ALT) 101 U/L (5-65); SODIUM, SERUM 134 MMOL/L (135-148); TOTAL BILIRUBIN 2.1 MG/DL (0-1.2)
[2016-12-29] MEDS ORDERED: PACERONE200 MG PO (16:25)
[2016-12-29] MEDS ORDERED: LOP25 PO (16:27)
[2016-12-29] MEDS ORDERED: VANCOCIN HCL125 MG PO (16:30)
[2016-12-29] MEDS ORDERED: T PO (16:31)
[2017-01-30] MEDS ORDERED: JANTOVEN5 MG PO (17:58)
[2017-01-30] MEDS ORDERED: JANTOVEN6 MG PO (18:01)
== END 2016-12-29 17:23 | disposition home or self-care (01) | DRG 853 ==
LOC: ER 12:58 → 5NO 14:48 → CCU 21:42 → 6NO 12-23 10:47 → IMCU 12-24 19:59 → 1SO 12-26 14:02
PROVIDERS: Emergency Medicine; Hospitalist; Internal Medicine; Internal Medicine Critical Care Medicine; Internal Medicine Nephrology; Internal Medicine Pulmonary Disease
PROC: 5A1955Z Respiratory Ventilation, Greater than 96 Consecutive Hours (ICD-10-PCS; principal; 2016-12-14)
PROC: 04VH3DZ Restriction of Right External Iliac Artery with Intraluminal Device, Percutaneous Approach (ICD-10-PCS; 2016-12-14)
PROC: 0BH17EZ Insertion of Endotracheal Airway into Trachea, Via Natural or Artificial Opening (ICD-10-PCS; 2016-12-14)
PROC: 06HM33Z Insertion of Infusion Device into Right Femoral Vein, Percutaneous Approach (ICD-10-PCS; 2016-12-14)
PROC: 02HV33Z Insertion of Infusion Device into Superior Vena Cava, Percutaneous Approach (ICD-10-PCS; 2016-12-15)
PROC: 5A1D60Z (ICD-10-PCS; 2016-12-15)
PROC: 3E0G76Z Introduction of Nutritional Substance into Upper GI, Via Natural or Artificial Opening (ICD-10-PCS; 2016-12-15)
PROC: 30233N1 Transfusion of Nonautologous Red Blood Cells into Peripheral Vein, Percutaneous Approach (ICD-10-PCS; 2016-12-24)
DX: A41.9 Sepsis, unspecified organism (principal); J96.01 Acute respiratory failure with hypoxia; K72.00 Acute and subacute hepatic failure without coma; R65.21 Severe sepsis with septic shock; A04.7 Enterocolitis due to Clostridium difficile; I50.21 Acute systolic (congestive) heart failure; K66.1 Hemoperitoneum; E87.2 Acidosis; N17.9 Acute kidney failure, unspecified; I42.8 Other cardiomyopathies; D62 Acute posthemorrhagic anemia; R13.10 Dysphagia, unspecified; G47.00 Insomnia, unspecified; I34.0 Nonrheumatic mitral (valve) insufficiency; I48.2 Chronic atrial fibrillation; Z79.01 Long term (current) use of anticoagulants; D69.6 Thrombocytopenia, unspecified
CPT/HCPCS: 31500; 31720; 36247; 36415; 36430; 36556; 36600; 36620; 37244; 71010; 71020; 71275; 72146; 72148; 74000; 74174; 74176; 74177; 75710; 75726; 80048; 80053; 80069; 80076; 80202; 81001; 82040; 82140; 82150; 82248; 82272; 82330; 82533; 82550; 82553; 82803; 82805; 82947; 82962; 83605; 83690; 83735; 83880; 84100; 84132; 84145; 84295; 84443; 84484; 85014; 85018; 85025; 85610; 85730; 86022; 86850; 86900; 86901; 86920; 87040; 87070; 87205; 87449; 87493; 87493-59; 87641; 90945; 92610-GN; 93005; 93306; 94002; 94003; 94640; 94660; 94770; 96365; 96375; 97162-GP; 97164-GP; 99152; 99153; 99291; A9270-GY; C1752; C1769; C1887; C1894; C9113; J0282; J0330; J0610; J0883; J1160; J1170; J1720; J2185; J2250; J2370; J2405; J2543; J2930; J2997; J3010; J3370; J3475; P9016; P9045; P9047; Q9967